=== PATIENT | female | born 1970 | race Two or more races ===

== ENCOUNTER 2017-04-25 11:01 | Emergency (ER) | payer MEDICARE, MEDICAID ==
[~2017-04-25] VITALS: Ht 149.9 cm; Wt 123.4 kg
[2017-04-25] MEDS ORDERED: ONDANSETRON HCL/PF 4 MG/2 ML VIAL ONE (11:36)
[2017-04-25] MEDS ORDERED: MORPHINE SULFATE INJ 4 MG/ML DISP.SYRIN ONE (11:37)
--- NOTE | 2017-04-25 11:40 | NUR ---
PT SENT BY DR. DUNBAR FOR ABD PAIN WITH N/V. PT DENIES FEVER. VSS. SEEN BY MD FOR EVAL. SAFETY AND COMFORT MEASURES PROVIDED. WILL MONITOR.
[2017-04-25 11:45] LABS: BASOPHILS % (AUTO) 0.4 % (0.0-2.0); EOSINOPHILS # (AUTO) 0.2 /CMM (0.0-0.7); EOSINOPHILS % (AUTO) 3.4 % (0.0-6.0); HEMATOCRIT 39 % (33-45); HEMOGLOBIN 12.8 g/dL (11.5-14.8); LYMPHOCYTES # (AUTO) 1.3 /CMM (0.8-4.8); LYMPHOCYTES % (AUTO) 18.7 % (20.0-44.0); MEAN CORPUSCULAR HEMOGLOBIN 28 PG (26.0-33.0); MEAN CORPUSCULAR HGB CONC 33 g/dl (31.0-36.0); MEAN CORPUSCULAR VOLUME 85 fL (82-100); MONOCYTES # (AUTO) 0.4 /CMM (0.1-1.30); MONOCYTES % (AUTO) 5.6 % (2.0-12.0); NEUTROPHILS # (AUTO) 4.9 /CMM (1.8-8.9); NEUTROPHILS % (AUTO) 71.9 % (43.0-81.0); PLATELET COUNT (AUTO) 234 /CMM (150-450); RED BLOOD CELL COUNT(AUTO) 4.62 MIL/uL (4.0-5.2); WHITE BLOOD COUNT (AUTO) 6.9 K/uL (4.3-11.0)
--- NOTE | 2017-04-25 11:52 | NUR ---
IV ACCESS STARTED. BLOOD DRAWN FOR LABS. PT MEDICATED ORDERED. UNABLE TO PROVIDED URINE SAMPLE AT THIS TIME.
[2017-04-25 11:58] LABS: ABG BASE EXCESS -1.9 mmol/L; ABG OXYGEN SATURATION 91.5 % (92.0-98.5); ABG PCO2 38.8 mmHg (35.0-45.0); ABG PH 7.387 (7.350-7.450); ABG PO2 65.9 mmHg (75.0-100.0); COHb 0.8 % (0.5-1.5); MetHb 0.4 % (0.0-1.5); O2Hb 90.4 % (94.0-97.0); VENT MODE, BG ROOM AIR
[2017-04-25] MEDS ORDERED: ONDANSETRON HCL/PF 4 MG/2 ML VIAL IVP ONE (12:00)
[2017-04-25] MEDS ORDERED: IV NS 0.9% 1,000 ML BAG IV ONE (12:00)
[2017-04-25] MEDS ORDERED: MORPHINE SULFATE INJ 2 MG/ML DISP.SYRIN IV ONE (12:00)
[2017-04-25 12:12] LABS: CALCIUM, SERUM 8.1 mg/dL (8.5-10.1); CREATININE 0.4 mg/dL (0.6-1.3)
[2017-04-25] MEDS ORDERED: HYDROMORPHONE 1 MG/1 ML DISP.SYRIN ONE (12:14)
[2017-04-25 12:18] LABS: ALBUMIN 3.2 g/dL (3.4-5.0); BILIRUBIN,DIRECT 0.1 mg/dL (0.0-0.2); BILIRUBIN,TOTAL 0.4 mg/dL (0.2-1.0)
--- NOTE | 2017-04-25 12:18 | NUR ---
CALLED PT'S SON DEBBIE AT PER PT'S REQUEST.
--- NOTE | 2017-04-25 12:19 | NUR ---
PT C/O OF PAIN, MD AWARE. NEW ORDERS CARRIED OUT.
[2017-04-25] MEDS ORDERED: HYDROMORPHONE 1 MG/1 ML DISP.SYRIN IV ONE (12:30)
--- NOTE | 2017-04-25 12:36 | NUR ---
URINE SAMPLE OBTAINED, SENT.
[2017-04-25 13:02] LABS: APPEARANCE,URINE CLEAR (CLEAR); BILIRUBIN,URINE NEGATIVE (NEGATIVE); BLOOD, URINE 1+ Ery/uL (NEGATIVE); COLOR,URINE YELLOW (YELLOW); KETONES,URINE NEGATIVE (NEGATIVE); LEUKOCYTE ESTERASE ,URINE TRACE (NEGATIVE); NITRITE, URINE NEGATIVE (NEGATIVE); PROTEIN,URINE NEGATIVE (NEGATIVE); UGLUCOSE 3+ mg/dL (NEGATIVE); UROBILINOGEN,URINE 0.2 EU/dL (0.2)
--- NOTE | 2017-04-25 13:02 | NUR ---
PT TAKEN TO CT.
[2017-04-25 13:06] LABS: BACTERIA,URINE Rare /HPF (None Seen); SQUAMOUS EPITHELIAL CELL,UR Few /HPF (None Seen); WBC,URINE 0-2 /HPF (0-3)
--- NOTE | 2017-04-25 13:08 | NUR ---
PT BACK IN BED FROM CT.
--- NOTE | 2017-04-25 13:31 | NUR ---
DR DUNBAR ON THE PHONE WITH DR PRICE.
--- NOTE | 2017-04-25 13:45 | NUR ---
IV removed. Catheter intact and site benign. Pressure and 4x4 applied to site. No bleeding noted.
--- NOTE | 2017-04-25 13:51 | NUR ---
Patient discharged to home in stable condition. Written and verbal after care instructions given. Patient verbalizes understanding of instruction.
[2017-04-25 13:52] VITALS: BP 117/72
== END 2017-04-25 13:53 | disposition home or self-care (01) ==
LOC: ER 11:21
DX: R10.84 Generalized abdominal pain (principal); E66.01 Morbid (severe) obesity due to excess calories; E11.65 Type 2 diabetes mellitus with hyperglycemia; F31.9 Bipolar disorder, unspecified; Z90.49 Acquired absence of other specified parts of digestive tract; Z90.710 Acquired absence of both cervix and uterus; Z88.8 Allergy status to other drugs, medicaments and biological substances
CPT/HCPCS: 36415; 36600; 71250; 74176; 80048; 80076; 81001; 83690; 84703; 85025; 96361; 96374; 96375; 99285; A4606; J1170; J2270; J2405; J7030 ×2; 81000-TC; Z7610

== ENCOUNTER 2017-06-15 10:55 | Emergency (ER) | payer MEDICARE, MEDICAID ==
[~2017-06-15] VITALS: Ht 149.9 cm; Wt 92.1 kg
--- NOTE | 2017-06-15 10:55 | NUR ---
SENT BY DR DUNBAR FOR ABSCESS TO L [facility] X 1 WEEK, BURNING SENSATION
[2017-06-15] MEDS ORDERED: LIDOCAINE HCL/PF 1% 30 ML SDV ONE (11:43)
[2017-06-15] MEDS ORDERED: LIDOCAINE 2%-EPI 1:100,000 30 ML VIAL TP ONE (12:00)
[2017-06-15] MEDS ORDERED: HYDROMORPHONE 1 MG/1 ML DISP.SYRIN IM ONE (12:30)
--- NOTE | 2017-06-15 12:48 | NUR ---
Patient discharged to home in stable condition. Written and verbal after care instructions given. Patient verbalizes understanding of instruction.
[2017-06-15 12:51] VITALS: BP 125/80
[2017-06-20] MEDS ORDERED: SULF1TAB48 PO (09:30)
== END 2017-06-15 12:52 | disposition home or self-care (01) ==
LOC: ER 10:58
DX: N76.2 Acute vulvitis (principal); E11.9 Type 2 diabetes mellitus without complications; F31.9 Bipolar disorder, unspecified; Z88.8 Allergy status to other drugs, medicaments and biological substances; Z90.49 Acquired absence of other specified parts of digestive tract; Z90.710 Acquired absence of both cervix and uterus
CPT/HCPCS: 56405; 96372; 99284; A4606; A6402 ×2; A6407; J1170; J3490; Z7610

== ENCOUNTER 2017-06-17 12:37 | Inpatient (IN) | payer MEDICARE, MEDICAID ==
[~2017-06-17] VITALS: Ht 149.9 cm; Wt 96.2 kg
--- NOTE | 2017-06-17 13:44 | NUR ---
VERBAL ORDER FROM HARMONY SAWANT LIDOCAINE 2% 20 ML AND XYLOCAINE 0.5 % WITH EPINEPHRINE [id number] INSTEAD OF 2% WITH EPI NO STOCK
[2017-06-17 13:56] LABS: BASOPHILS % (AUTO) 0.5 % (0.0-2.0); EOSINOPHILS # (AUTO) 0.2 /CMM (0.0-0.7); EOSINOPHILS % (AUTO) 3.4 % (0.0-6.0); HEMATOCRIT 38 % (33-45); HEMOGLOBIN 12.6 g/dL (11.5-14.8); LYMPHOCYTES # (AUTO) 1.6 /CMM (0.8-4.8); LYMPHOCYTES % (AUTO) 23.5 % (20.0-44.0); MEAN CORPUSCULAR HEMOGLOBIN 28 PG (26.0-33.0); MEAN CORPUSCULAR HGB CONC 33 g/dl (31.0-36.0); MEAN CORPUSCULAR VOLUME 83 fL (82-100); MONOCYTES # (AUTO) 0.5 /CMM (0.1-1.30); MONOCYTES % (AUTO) 6.8 % (2.0-12.0); NEUTROPHILS # (AUTO) 4.5 /CMM (1.8-8.9); NEUTROPHILS % (AUTO) 65.8 % (43.0-81.0); PLATELET COUNT (AUTO) 240 /CMM (150-450); RDW COEFFICIENT OF VARIATION 13.9 (11.5-15.0); RED BLOOD CELL COUNT(AUTO) 4.55 MIL/uL (4.0-5.2); WHITE BLOOD COUNT (AUTO) 6.9 K/uL (4.3-11.0)
[2017-06-17] MEDS ORDERED: TRAZ-147 PO (14:10)
[2017-06-17] MEDS ORDERED: LOSA25TA13 PO (14:10)
[2017-06-17] MEDS ORDERED: GEMF600T3 PO (14:10)
[2017-06-17] MEDS ORDERED: INSU100V11 SQ (14:10)
[2017-06-17] MEDS ORDERED: SERT100T PO (14:10)
[2017-06-17] MEDS ORDERED: ASPI-991 PO (14:10)
[2017-06-17] MEDS ORDERED: DICY10CA59 PO (14:10)
[2017-06-17] MEDS ORDERED: SITA1TAB6 PO (14:10)
[2017-06-17] MEDS ORDERED: INSU100I19 SQ (14:10)
[2017-06-17] MEDS ORDERED: ARIP15TA8 PO (14:10)
[2017-06-17 14:27] LABS: CALCIUM, SERUM 8.9 mg/dL (8.5-10.1); CREATININE 0.6 mg/dL (0.6-1.3); POTASSIUM 4.2 mmol/L (3.5-5.1)
[2017-06-17 14:32] LABS: ALBUMIN 3.5 g/dL (3.4-5.0); BILIRUBIN,DIRECT 0.1 mg/dL (0.0-0.2); BILIRUBIN,TOTAL 0.5 mg/dL (0.2-1.0); TOTAL PROTEIN, SERUM 7.2 g/dL (6.4-8.2)
--- NOTE | 2017-06-17 14:56 | NUR ---
GAVE REPORT TO [facility]NG [facility] ROOM 202 DR FERNANDO ADMITTING
--- NOTE | 2017-06-17 15:55 | NUR ---
RN Initial Notes: Received patient from ER per Dr. Guzman's orders. Patient alert orientedx4. Non-labored breathing noted on room air. Patient accompanied by son. Vital signs: blood pressure: 106/70, HR 86, SpO2 97%, RR 18, Temp 98.4F. No signs of distress noted. Received report from Mina who informed me that Clindamycin was administered in the ER. IV on right AC, gauge 20, patent and intact. Will continue to monitor patient and follow orders
--- NOTE | 2017-06-17 18:45 | NUR ---
RN Closing Notes: Patient resting in bed. Patient alert orientedx4. Non-labored breathing noted on room air. Blood sugar checked before dinner 224. Pharmacy contacted to have insulin delivered. Awaiting on insulin delivery. IV on right AC, gauge 20, patent and intact. Clindamycin scheduled at 1500 administered by Mina in ER. Patient afebrile. No bleeding noted on pad from past abscess site. Will endorse to next shift.
--- NOTE | 2017-06-17 19:50 | NUR ---
RN NOTES: RECEIVED REPORT FROM DEREK VIDAL PT IN BED AWAKE, A/O X3 ON RA RESPIRATION EVEN AND UNLABORED, DENIES ANY PAIN OR DISCOMFORT ATT HIS TIME, RIGHT AC IV ACCESS PATENT AND FLUSHING WELL, INFUSING WITH VANCOMYCIN ATB AT 250ML/HR. S/P I&D OF LEFT VULVAR WOUND IN ER 06/17/17, DRESSING IN PLACED, NOTED WITH SOME DRY BLOOD, SAFETY PRECAUTION FOR FALL INITIATED CALL LIGHT IN REACH, WILL CONTINUE TO MONITOR FOR ANY CHANGES.
[2017-06-17 20:00] VITALS: BP_SYST 109; BP_DIAS 64; BP_DIAS 68
--- NOTE | 2017-06-17 20:31 | NUR ---
LATE ADMINISTRATION OF LEVEMIR: DAY RN YOUNG WASN'T ABLE TO GIVE THE LEVEMIR AT SCHEDULED TIME (1700) SHE STATED MEDICATION NOT AVAILABLE, BUT WHEN I CHECKED THE CASETTE DURING CHANGE OF SHIFT, LEVEMIR IS IN THERE. BS CHECK AND REVEAL 338, 40 UNITS OF LEVEMIR ADMINISTERED AT THIS TIME, PT ON CCHO DIET.
[2017-06-17 22:30] VITALS: BP 109/64
--- NOTE | 2017-06-17 22:38 | NUR ---
accu check: blood sugar taken and reveal 329, 8units of insulin given per sliding scale, pt on ccho diet, tolerating po intake well, also losartan not administered due to bp 109/64 hr 75, risk of hypotension of given the pill, will continue to monitor and reassess
--- NOTE | 2017-06-18 06:31 | NUR ---
ACCU CHECK: CHECK BLOOD SUGAR AND REVEAL 225, 6UNITS OF INSULIN GIVEN PER SLIDING SCALE, WILL MONITOR PT FOR ANY S/S OF HYPOGLYCEMIA
[2017-06-18 06:36] LABS: CALCIUM, SERUM 8.5 mg/dL (8.5-10.1); CREATININE 0.6 mg/dL (0.6-1.3); POTASSIUM 4.4 mmol/L (3.5-5.1)
--- NOTE | 2017-06-18 07:11 | NUR ---
RN CLOSING NOTES: PT IN BED, AWAKE, ON RA, DENIES ANY PAIN OR DISCOMFORT THROUGHOUT THE SHIFT. PACKING ON LEFT VALVULAR AREA REMAISN IN PLACED, NO ACTIVE BLEEDING NOTED. RIGHT AC IV ACCESS REMAINS PATENT AND FLUSHING WELL, ON HL. VS REMAINS STABLE, NEEDS ATTENDED. SAFETY PRECAUTIONS FOR FALL REMAINS ENGAGED, CALL LIGHT IN REACH, WILL ENDORSE TO DAY RN FOR CARO.
--- NOTE | 2017-06-18 07:35 | NUR ---
RN OPENING NOTES RECEIVED PATIENT AWAKE RESTING COMFORTABLY IN BED. A/Ox3. COMPLAINING OF PAIN 8/10 AT THE ABSCESS SITE. WILL IMPLEMENT APPROPRIATE INTERVENTIONS. DENIES SOB. DENIES CHEST PAIN. RESPIRATIONS EVEN AND UNLABORED. NO ACUTE DISTRESS NOTED. BED LOCKED IN THE LOWEST POSITION WITH SIDE RAILS X2. WILL CONTINUE TO MONITOR, ASSESS AND EDUCATE PATIENT THROUGHOUT SHIFT.
[2017-06-18 08:00] VITALS: BP 111/72
--- NOTE | 2017-06-18 10:43 | NUR ---
WOUND CARE CONSULT: PT PRESENTS WITH ABSCESS SITE S/P I&D TO LEFT VULVA AREA. RECOMMEND SURGICAL CONSULT. WILL SEE PRN. ARZOLA IN AGREEMENT WITH PLAN OF CARE. Addendum: 06/18/17 at 1044 by GINGER FENTON WNDNU Amended: Links added.
--- NOTE | 2017-06-18 11:06 | NUR ---
RN NOTES PATIENT SEEN BY WOUND RN AND PACKING REMOVED.
[2017-06-18 16:00] VITALS: BP 120/84
--- NOTE | 2017-06-18 19:40 | NUR ---
MS RN NOTE RECEIVED PATIENT FROM DAY SHIFT, PATIENT IS ALERT AND ORIENTEDX3, AMBULATORY, NO S/S OF RESPIRATORY DISTRESS OR PAIN AT THIS TIME. IV ON RIGHT AC IS PATENT AND INTACT, HL ONLY. SRX2, BED IN LOW POSITION, CALL LIGHT WITHIN REACH, WILL CONTINUE TO MONITOR PATIENT.
[2017-06-18 19:57] VITALS: BP 103/66
--- NOTE | 2017-06-18 20:16 | NUR ---
RN CLOSING NOTES RECEIVED PATIENT RESTING COMFORTABLY IN BED. A/Ox3. DENIES PAIN. DENIES SOB. DENIES CHEST PAIN. RESPIRATIONS EVEN AND UNLABORED. NO ACUTE DISTRESS NOTED. BLOOD SUGAR CONTROLLED. ALL NEEDS MET. ALL MEDS GIVEN APPROPRIATE. BED LOCKED IN THE LOWEST POSITION WITH SIDE RAILS X2. WILL ENDORSE TO NIGHT RN FOR CARO.
[2017-06-19 06:41] LABS: CALCIUM, SERUM 8.4 mg/dL (8.5-10.1); CREATININE 0.5 mg/dL (0.6-1.3); POTASSIUM 4.1 mmol/L (3.5-5.1)
--- NOTE | 2017-06-19 07:18 | NUR ---
MS RN NOTE PATIENT IS RESTING IN CHAIR COMFORTABLY, DENIES RESPIRATORY DISTRESS OR PAIN AT THIS TIME. IV ON RIGHT FA IS PATENT AND INTACT, RUNNING ABX. WILL ENDORSE TO DAY SHIFT NURSE FOR CARO.
[2017-06-19 08:00] VITALS: BP 114/73
[2017-06-19 16:00] VITALS: BP 117/73
--- NOTE | 2017-06-19 18:55 | NUR ---
MS RN Closing Notes: Received patient in bed. Patient alert oriented x3. Non-labored breathing noted on room air. Patient denies pain at the moment. IV site on right ac patent and intact. Bed in lowest locked position. Call light within reach. During shift, patient kept clean and dry. Wound assessed and cleaned. No signs of infection. Patient helped to turn and reposition every 2 hours. Will endorse to next shift
--- NOTE | 2017-06-19 19:40 | NUR ---
MS RN NOTE RECEIVED PATIENT FROM DAY SHIFT, PATIENT IS ALERT AND ORIENTEDX3, NO S/S OF RESPIRATORY DISTRESS OR PAIN AT THIS TIME. IV ON RIGHT AC IS PATENT AND INTACT, ABX IS RUNNING. SRX2, BED IN LOW POSITION, CALL LIGHT WITHIN REACH, WILL CONTINUE TO MONITOR PATIENT.
[2017-06-19 20:00] VITALS: BP 122/69
[2017-06-20 06:51] LABS: CALCIUM, SERUM 8.4 mg/dL (8.5-10.1); CREATININE 0.7 mg/dL (0.6-1.3); POTASSIUM 4.2 mmol/L (3.5-5.1)
--- NOTE | 2017-06-20 06:52 | NUR ---
MS RN NOTE NO ACUTE EVENT NOTED THROUGHOUT THE FILLING LAYER UP. NO S/S OF RESPIRATORY DISTRESS OR PAIN AT THIS TIME. IV ON RIGHT AC IS PATENT AND INTACT, ABX IS RUNNING. WILL ENDORSE TO DAY SHIFT NURSE FOR CARO.
--- NOTE | 2017-06-20 08:03 | NUR ---
MS RN Closing Notes: Received patient in bed. Patient alert oriented x3. Non-labored breathing noted on room air. Patient denies pain at the moment. IV site on right ac patent and intact. Bed in lowest locked position. Call light within reach. Will continue to monitor.
[2017-06-20 08:08] VITALS: BP 107/70
[2017-06-20] MEDS ORDERED: SULF1TAB48 PO (09:30)
[2017-06-20 16:19] VITALS: BP 114/71
--- NOTE | 2017-06-20 16:20 | NUR ---
RN Closing Notes: Patient discharged home per MD orders. Patient stable. Vital signs within normal range. Non-labored breathing noted on room air. Patient denies pain at the moment. Patient educated [facility] regarding medications, disease process, and treatment. Patient states having the flu vaccine a month ago. Wound picture in chart. IV peripheral taken out. Patient has an appointment with primary home health aide caregiver tomorrow. Patient educated on wound care instructions provided by Swetha EAGLE. Patient educated to make an appointment with wound center. Belongings given to patient. Patient left with son via private car.
== END 2017-06-20 16:30 | disposition home or self-care (01) | DRG 746 ==
LOC: ER 12:39 → MEDSG2 16:29
PROVIDERS: ADMIT Internal Medicine; ATTEND Internal Medicine
PROC: 0U9MXZZ Drainage of Vulva, External Approach (ICD-10-PCS; principal; 2017-06-17)
DX: N76.4 Abscess of vulva (principal); E43 Unspecified severe protein-calorie malnutrition; Z68.41 Body mass index [BMI] 40.0-44.9, adult; E11.9 Type 2 diabetes mellitus without complications; E78.5 Hyperlipidemia, unspecified; E66.01 Morbid (severe) obesity due to excess calories; E88.09 Other disorders of plasma-protein metabolism, not elsewhere classified; I10 Essential (primary) hypertension; F31.9 Bipolar disorder, unspecified; Z79.4 Long term (current) use of insulin
CPT/HCPCS: 36415; 80048-TC; 80076-TC; 80202-TC; 82962-TC; 83605-TC; 85025-TC; 87040-TC; 87081-TC; A4606; A6403; A6407; J1170; J1650; J1815; J2405; J3370; J3490; J7030; J7060; Z7610

== ENCOUNTER 2017-06-25 14:00 | Outpatient (CLI) | payer MEDICARE, MEDICAID ==
[~2017-06-25 14:00] MED LIST: ARIP15TA8 PO; ASPI-991 PO; DICY10CA59 PO; GEMF600T3 PO; INSU100I19 SQ; INSU100V11 SQ; LOSA25TA13 PO; SERT100T PO; SITA1TAB6 PO; SULF1TAB48 PO; TRAZ-147 PO
== END 2017-06-25 23:59 | disposition home or self-care (01) ==
LOC: WOU 14:00
PROVIDERS: ATTEND Surgery
DX: Z48.817 Encounter for surgical aftercare following surgery on the skin and subcutaneous tissue (principal); N76.2 Acute vulvitis; E11.9 Type 2 diabetes mellitus without complications; Z79.4 Long term (current) use of insulin; E66.01 Morbid (severe) obesity due to excess calories; Z68.41 Body mass index [BMI] 40.0-44.9, adult; Z71.3 Dietary counseling and surveillance
CPT/HCPCS: G0463

== ENCOUNTER 2017-07-02 06:17 | Emergency (ER) | payer MEDICARE, MEDICAID ==
[~2017-07-02] VITALS: Ht 149.9 cm; Wt 92.1 kg
--- NOTE | 2017-07-02 06:25 | NUR ---
To bed 7 a 47yo female patient bb self w c/o umbilcal henia pain x 1 day. Patient is aaox4, nad noted, vss, nondiaphoretic. gowned. comfort measures rendered. awaiting for er md centeno.
--- NOTE | 2017-07-02 06:41 | NUR ---
Dr Blackmon at bedside to eval.
--- NOTE | 2017-07-02 07:07 | NUR ---
applied psychology chair at bedside to draw blood.
[2017-07-02 07:19] LABS: BASOPHILS % (AUTO) 0.4 % (0.0-2.0); EOSINOPHILS # (AUTO) 0.1 /CMM (0.0-0.7); EOSINOPHILS % (AUTO) 1.8 % (0.0-6.0); HEMATOCRIT 37 % (33-45); HEMOGLOBIN 12.1 g/dL (11.5-14.8); LYMPHOCYTES # (AUTO) 1.3 /CMM (0.8-4.8); LYMPHOCYTES % (AUTO) 15.5 % (20.0-44.0); MEAN CORPUSCULAR HEMOGLOBIN 28 PG (26.0-33.0); MEAN CORPUSCULAR HGB CONC 33 g/dl (31.0-36.0); MEAN CORPUSCULAR VOLUME 84 fL (82-100); MONOCYTES # (AUTO) 0.4 /CMM (0.1-1.30); NEUTROPHILS # (AUTO) 6.5 /CMM (1.8-8.9); NEUTROPHILS % (AUTO) 77.3 % (43.0-81.0); PLATELET COUNT (AUTO) 233 /CMM (150-450); RDW COEFFICIENT OF VARIATION 13.5 (11.5-15.0); RED BLOOD CELL COUNT(AUTO) 4.35 MIL/uL (4.0-5.2); WHITE BLOOD COUNT (AUTO) 8.4 K/uL (4.3-11.0)
[2017-07-02 07:25] LABS: APPEARANCE,URINE SL CLOUDY (CLEAR); BILIRUBIN,URINE NEGATIVE (NEGATIVE); BLOOD, URINE TRACE-INTA Ery/uL (NEGATIVE); COLOR,URINE YELLOW (YELLOW); KETONES,URINE NEGATIVE (NEGATIVE); LEUKOCYTE ESTERASE ,URINE NEGATIVE (NEGATIVE); NITRITE, URINE NEGATIVE (NEGATIVE); PROTEIN,URINE NEGATIVE (NEGATIVE); UGLUCOSE 3+ mg/dL (NEGATIVE); UROBILINOGEN,URINE 0.2 EU/dL (0.2)
[2017-07-02 07:37] LABS: ALBUMIN 3.3 g/dL (3.4-5.0); BILIRUBIN,DIRECT 0.1 mg/dL (0.0-0.2); BILIRUBIN,TOTAL 0.5 mg/dL (0.2-1.0); CALCIUM, SERUM 8.4 mg/dL (8.5-10.1); CREATININE 0.7 mg/dL (0.6-1.3); POTASSIUM 4.3 mmol/L (3.5-5.1); TOTAL PROTEIN, SERUM 6.6 g/dL (6.4-8.2)
[2017-07-02 07:50] LABS: RBC,URINE 0-2 /HPF (0-2); WBC,URINE NONE SEEN /HPF (0-3)
[2017-07-02 07:51] LABS: BACTERIA,URINE Few /HPF (None Seen); SQUAMOUS EPITHELIAL CELL,UR Moderate /HPF (None Seen); YEAST,URINE Few /HPF (None Seen)
[2017-07-02] MEDS ORDERED: INSULIN DETEMIR 100 UNIT/ML CARTRIDGE SQ SCH (08:00)
--- NOTE | 2017-07-02 08:08 | NUR ---
Patient discharged to home in stable condition. Written and verbal after care instructions given. Patient verbalizes understanding of instruction.
[2017-07-02 08:09] VITALS: BP 133/85
== END 2017-07-02 08:10 | disposition home or self-care (01) ==
LOC: ER 06:17
DX: R10.11 Right upper quadrant pain (principal); E11.65 Type 2 diabetes mellitus with hyperglycemia; N20.0 Calculus of kidney; E66.01 Morbid (severe) obesity due to excess calories; F31.9 Bipolar disorder, unspecified; Z90.49 Acquired absence of other specified parts of digestive tract; Z90.710 Acquired absence of both cervix and uterus; Z88.8 Allergy status to other drugs, medicaments and biological substances; Z79.82 Long term (current) use of aspirin; Z79.4 Long term (current) use of insulin
CPT/HCPCS: 36415; 74020; 80048; 80076; 81001; 83690; 85025; 96372; 99285; A4606; J1815; 81000-TC; Z7610

== ENCOUNTER 2017-09-21 10:47 | Emergency (ER) | payer MEDICARE, MEDICAID ==
[~2017-09-21] VITALS: Ht 154.9 cm; Wt 88.9 kg
[~2017-09-21 10:47] MED LIST changes: +ASPI-1152 PO; -ASPI-991 PO
[2017-09-21] MEDS ORDERED: INSULIN ASPART HUMALOG/NOVOLOG 100 UNIT/ML CARTRIDGE SQ STA (11:25)
[2017-09-21] MEDS ORDERED: IV NS 0.9% 1,000 ML BAG IV ONE (11:30)
--- NOTE | 2017-09-21 11:30 | NUR ---
47-year-old female patient sent by her primary care physician for treatment and evaluation of hyperglycemia
--- NOTE | 2017-09-21 11:35 | NUR ---
Seen by the ER physician; intravenous line started - IVF 1 L and his bolus given
[2017-09-21] MEDS ORDERED: INSULIN REGULAR, HUMAN 100 UNIT/ML 10 ML VIAL ONE (11:38)
--- NOTE | 2017-09-21 11:47 | NUR ---
Regular insulin IV push 10 units given witnessed by Hal REED registered nurse
--- NOTE | 2017-09-21 11:49 | NUR ---
No acute distress; labs drawn and sent to the laboratory
[2017-09-21 11:56] LABS: CALCIUM, SERUM 8.9 mg/dL (8.5-10.1); CREATININE 0.5 mg/dL (0.6-1.3); POTASSIUM 4.1 mmol/L (3.5-5.1)
--- NOTE | 2017-09-21 13:02 | NUR ---
BLOOD SUGAR RECHECK 252.
--- NOTE | 2017-09-21 19:01 | NUR ---
IV removed. Catheter intact and site benign. Pressure and 4x4 applied to site. No bleeding noted.
--- NOTE | 2017-09-21 19:01 | NUR ---
Patient discharged to home in stable condition. Written and verbal after care instructions given. Patient verbalizes understanding of instruction. ambulatory with a steady gait.
[2017-09-21 19:03] VITALS: BP 132/70
== END 2017-09-21 19:04 | disposition home or self-care (01) ==
LOC: ER 10:55
DX: E11.65 Type 2 diabetes mellitus with hyperglycemia (principal); Z91.14 Patient's other noncompliance with medication regimen; F31.9 Bipolar disorder, unspecified; Z79.4 Long term (current) use of insulin; Z90.49 Acquired absence of other specified parts of digestive tract; Z90.710 Acquired absence of both cervix and uterus; Z88.8 Allergy status to other drugs, medicaments and biological substances; Z79.82 Long term (current) use of aspirin
CPT/HCPCS: 36415; 80048; 82962 ×2; 96374; 99284; A4606; J1815 ×2; J7030; Z7610

== ENCOUNTER 2017-10-10 15:42 | Emergency (ER) | payer MEDICARE, MEDICAID ==
[~2017-10-10] VITALS: Ht 154.9 cm; Wt 89.8 kg
[2017-10-10] MEDS ORDERED: IV NS 0.9% 500 ML BAG IV ONE (16:00)
[2017-10-10 16:10] LABS: BASOPHILS # (AUTO) 0.1 /CMM (0.0-0.2); BASOPHILS % (AUTO) 1.6 % (0.0-2.0); EOSINOPHILS # (AUTO) 0.2 /CMM (0.0-0.7); EOSINOPHILS % (AUTO) 2.1 % (0.0-6.0); HEMATOCRIT 39 % (33-45); HEMOGLOBIN 13.6 g/dL (11.5-14.8); LYMPHOCYTES # (AUTO) 1.6 /CMM (0.8-4.8); LYMPHOCYTES % (AUTO) 21.3 % (20.0-44.0); MEAN CORPUSCULAR HEMOGLOBIN 29 PG (26.0-33.0); MEAN CORPUSCULAR HGB CONC 35 g/dl (31.0-36.0); MEAN CORPUSCULAR VOLUME 82 fL (82-100); MONOCYTES # (AUTO) 0.3 /CMM (0.1-1.30); MONOCYTES % (AUTO) 4.3 % (2.0-12.0); NEUTROPHILS # (AUTO) 5.3 /CMM (1.8-8.9); NEUTROPHILS % (AUTO) 70.7 % (43.0-81.0); PLATELET COUNT (AUTO) 262 /CMM (150-450); RDW COEFFICIENT OF VARIATION 12.8 (11.5-15.0); RED BLOOD CELL COUNT(AUTO) 4.74 MIL/uL (4.0-5.2); WHITE BLOOD COUNT (AUTO) 7.5 K/uL (4.3-11.0)
[2017-10-10 16:23] LABS: INR 0.88 (0.85-1.15)
[2017-10-10 16:25] LABS: ALBUMIN 3.7 g/dL (3.4-5.0); BILIRUBIN,DIRECT 0.1 mg/dL (0.0-0.2); BILIRUBIN,TOTAL 0.3 mg/dL (0.2-1.0); CALCIUM, SERUM 8.9 mg/dL (8.5-10.1); CREATININE 0.7 mg/dL (0.6-1.3); POTASSIUM 4.2 mmol/L (3.5-5.1); TOTAL PROTEIN, SERUM 7.3 g/dL (6.4-8.2)
[2017-10-10] MEDS ORDERED: INSULIN REGULAR, HUMAN 100 UNIT/ML 10 ML VIAL ONE (17:15)
[2017-10-10] MEDS ORDERED: INSULIN REGULAR, HUMAN 100 UNIT/ML 10 ML VIAL SQ ONE (17:30)
[2017-10-10 17:45] VITALS: BP 126/74
== END 2017-10-10 17:45 | disposition home or self-care (01) ==
LOC: ER 15:43
DX: E11.65 Type 2 diabetes mellitus with hyperglycemia (principal); F31.9 Bipolar disorder, unspecified; Z90.49 Acquired absence of other specified parts of digestive tract; Z90.710 Acquired absence of both cervix and uterus; Z88.8 Allergy status to other drugs, medicaments and biological substances; Z79.82 Long term (current) use of aspirin; Z79.4 Long term (current) use of insulin
CPT/HCPCS: 36415; 80048-TC; 80076-TC; 82010-TC; 85025-TC; 85730-TC; A4606; J1815; J7040; Z7610

== ENCOUNTER 2017-11-28 11:39 | Emergency (ER) | payer MEDICARE, MEDICAID ==
[~2017-11-28] VITALS: Ht 154.9 cm; Wt 97.1 kg
[2017-11-28 11:40] VITALS: BP 144/85
== END 2017-11-28 12:37 | disposition home or self-care (01) ==
LOC: ER 11:41
DX: L08.9 Local infection of the skin and subcutaneous tissue, unspecified (principal); E11.9 Type 2 diabetes mellitus without complications; F31.9 Bipolar disorder, unspecified; Z88.8 Allergy status to other drugs, medicaments and biological substances; Z90.710 Acquired absence of both cervix and uterus; Z90.49 Acquired absence of other specified parts of digestive tract; Z79.82 Long term (current) use of aspirin; Z79.4 Long term (current) use of insulin
CPT/HCPCS: A4606; Z7610

== ENCOUNTER 2018-04-07 23:21 | Emergency (ER) | payer MEDICARE, MEDICAID ==
[~2018-04-07] VITALS: Ht 154.9 cm; Wt 98.4 kg
[~2018-04-07 23:21] MED LIST changes: -TRAZ-147 PO; +TRAZ-214 PO
--- NOTE | 2018-04-07 23:39 | NUR ---
MD BEDSIDE WITH PT
--- NOTE | 2018-04-07 23:45 | NUR ---
PT BBSELF FROM HOME C/C OF SWELLING/REDNESS/ABSCESS ON THE LEFT LATERAL NECK. PT IS AAOX4. AFEBRILE. DENIES ANY DIFFICULTY SWALLOWING. SKIN WNL. NO S/S OF ACUTE DISTRESS NOTED. OT STATES LEFT NECK PAIN 10/10 NON RADIATING AND CONSTANT. RESP EVEN AND UNLABORED. PT PLACED ON BANK RUNNER AND POX. PT SAFETY AND COMFORT MEASURES IN PLACE. AWAITING MD FOR EVAL.
[2018-04-07 23:56] LABS: BASOPHILS # (AUTO) 0.1 /CMM (0.0-0.2); BASOPHILS % (AUTO) 0.7 % (0.0-2.0); HEMATOCRIT 38 % (33-45); HEMOGLOBIN 12.8 g/dL (11.5-14.8); LYMPHOCYTES # (AUTO) 1.6 /CMM (0.8-4.8); LYMPHOCYTES % (AUTO) 19.5 % (20.0-44.0); MEAN CORPUSCULAR HEMOGLOBIN 29 PG (26.0-33.0); MEAN CORPUSCULAR HGB CONC 34 g/dl (31.0-36.0); MEAN CORPUSCULAR VOLUME 85 fL (82-100); MONOCYTES # (AUTO) 0.5 /CMM (0.1-1.30); MONOCYTES % (AUTO) 5.6 % (2.0-12.0); NEUTROPHILS # (AUTO) 5.8 /CMM (1.8-8.9); NEUTROPHILS % (AUTO) 70.2 % (43.0-81.0); PLATELET COUNT (AUTO) 266 /CMM (150-450); RDW COEFFICIENT OF VARIATION 13.7 (11.5-15.0); RED BLOOD CELL COUNT(AUTO) 4.47 MIL/uL (4.0-5.2); WHITE BLOOD COUNT (AUTO) 8.3 K/uL (4.3-11.0)
[2018-04-08] MEDS ORDERED: MORPHINE SULFATE INJ 2 MG/ML DISP.SYRIN IV ONE
[2018-04-08] MEDS ORDERED: ONDANSETRON HCL/PF 4 MG/2 ML VIAL IVP ONE
[2018-04-08] MEDS ORDERED: IV NS 0.9% 500 ML BAG IV ONE
[2018-04-08] MEDS ORDERED: ONDANSETRON HCL/PF 4 MG/2 ML VIAL ONE (00:01)
[2018-04-08] MEDS ORDERED: MORPHINE SULFATE INJ 4 MG/ML DISP.SYRIN ONE (00:02)
--- NOTE | 2018-04-08 00:11 | NUR ---
PT REFUSED MORPHINE AND ZOFRAN. MEDS RETURNED WITH RN MOLLY Saucedo MD MADE AWARE
[2018-04-08 00:35] LABS: CALCIUM, SERUM 9.1 mg/dL (8.5-10.1); CREATININE 0.9 mg/dL (0.6-1.3); POTASSIUM 4.4 mmol/L (3.5-5.1)
[2018-04-08] MEDS ORDERED: IOHEXOL-300 100 ML VIAL IV ONE (00:55)
[2018-04-08] MEDS ORDERED: CT SWABBABLE VALVE TRANS SET 1 EA INFUS.SET MC ONE (00:55)
[2018-04-08 02:46] VITALS: BP 151/70
--- NOTE | 2018-04-08 02:46 | NUR ---
Patient discharged to home in stable condition. Written and verbal after care instructions given. Patient verbalizes understanding of instruction.IV removed. Catheter intact and site benign. Pressure and 4x4 applied to site. No bleeding noted. NO S/S OF DISTRESS NOTED UPON DISCHARGE
== END 2018-04-08 02:48 | disposition home or self-care (01) ==
LOC: ER 23:21
DX: L03.221 Cellulitis of neck (principal); L02.11 Cutaneous abscess of neck; E11.9 Type 2 diabetes mellitus without complications; E78.00 Pure hypercholesterolemia, unspecified; Z88.8 Allergy status to other drugs, medicaments and biological substances; Z79.4 Long term (current) use of insulin; Z79.82 Long term (current) use of aspirin
CPT/HCPCS: 36415; 70491-TC; 80048-TC; 85025-TC; A4606; J2270; J2405; J7040; Q9967; Z7610

== ENCOUNTER 2018-10-19 06:54 | Emergency (ER) | payer MEDICARE, MEDICAID ==
[~2018-10-19] VITALS: Ht 154.9 cm; Wt 93.1 kg
[~2018-10-19 06:54] MED LIST changes: -GEMF600T3 PO; +GEMF600T5 PO; -LOSA25TA13 PO; +LOSA25TA27 PO
--- NOTE | 2018-10-19 07:13 | NUR ---
BIBSELF C/O "OUTSIDE OF VAGINA IS ITCHING AND BURNING" X 1 WEEK. ALSO C/O R FOOT TOENAIL FUNGUS. TO ER BED 9, HOOKED TO MONITOR, AWAITING MD MENDOZA
--- NOTE | 2018-10-19 07:28 | NUR ---
DR BLOOM AT BEDSIDE
[2018-10-19] MEDS ORDERED: IBUPROFEN 600 MG TABLET PO ONE ×2 (07:30→07:33)
[2018-10-19] MEDS ORDERED: FLUCONAZOLE (100 MG) 100 MG TABLET PO ONE (07:30)
[2018-10-19] MEDS ORDERED: FLUCONAZOLE (100 MG) 100 MG TABLET ONE (07:33)
--- NOTE | 2018-10-19 07:44 | NUR ---
Patient discharged to home in stable condition. Written and verbal after care instructions given. Patient verbalizes understanding of instruction.
[2018-10-19 07:46] VITALS: BP 138/81
== END 2018-10-19 07:47 | disposition home or self-care (01) ==
LOC: ER 06:57
DX: B35.1 Tinea unguium (principal); N76.0 Acute vaginitis; E11.9 Type 2 diabetes mellitus without complications; F31.9 Bipolar disorder, unspecified; E78.00 Pure hypercholesterolemia, unspecified; Z98.890 Other specified postprocedural states; Z90.49 Acquired absence of other specified parts of digestive tract; Z90.710 Acquired absence of both cervix and uterus; Z79.82 Long term (current) use of aspirin; Z79.4 Long term (current) use of insulin; Z88.8 Allergy status to other drugs, medicaments and biological substances; Z88.3 Allergy status to other anti-infective agents; Z88.4 Allergy status to anesthetic agent
CPT/HCPCS: 99283; A4606

== ENCOUNTER 2018-11-02 13:30 | Emergency (ER) | payer MEDICARE, MEDICAID ==
[~2018-11-02] VITALS: Ht 154.9 cm; Wt 93.0 kg
[2018-11-02 13:59] VITALS: BP 127/77
[2018-11-02 14:26] LABS: BASOPHILS % (AUTO) 0.6 % (0.0-2.0); EOSINOPHILS % (AUTO) 2.1 % (0.0-6.0); HEMATOCRIT 39 % (33-45); HEMOGLOBIN 12.9 g/dL (11.5-14.8); LYMPHOCYTES # (AUTO) 1.4 /CMM (0.8-4.8); LYMPHOCYTES % (AUTO) 18.3 % (20.0-44.0); MEAN CORPUSCULAR HGB CONC 33 g/dl (31.0-36.0); MEAN CORPUSCULAR VOLUME 85 fL (82-100); MONOCYTES # (AUTO) 0.4 /CMM (0.1-1.30); MONOCYTES % (AUTO) 5.6 % (2.0-12.0); NEUTROPHILS # (AUTO) 5.7 /CMM (1.8-8.9); NEUTROPHILS % (AUTO) 73.4 % (43.0-81.0); PLATELET COUNT (AUTO) 246 /CMM (150-450); RED BLOOD CELL COUNT(AUTO) 4.58 MIL/uL (4.0-5.2); WHITE BLOOD COUNT (AUTO) 7.8 K/uL (4.3-11.0)
[2018-11-02 14:37] LABS: APPEARANCE,URINE Clear (CLEAR); BILIRUBIN,URINE Negative (NEGATIVE); BLOOD, URINE Negative Ery/uL (NEGATIVE); COLOR,URINE Yellow (YELLOW); KETONES,URINE Trace (NEGATIVE); LEUKOCYTE ESTERASE ,URINE Negative (NEGATIVE); NITRITE, URINE Negative (NEGATIVE); PROTEIN,URINE Negative (NEGATIVE); UGLUCOSE 500 MG/DL mg/dL (NEGATIVE); UROBILINOGEN,URINE 0.2 EU/dL (0.2)
[2018-11-02 14:41] LABS: CALCIUM, SERUM 8.5 mg/dL (8.5-10.1); CREATININE 0.8 mg/dL (0.6-1.3); POTASSIUM 4.3 mmol/L (3.5-5.1)
== END 2018-11-02 15:29 | disposition home or self-care (01) ==
LOC: ER 13:35
DX: E11.65 Type 2 diabetes mellitus with hyperglycemia (principal); N30.10 Interstitial cystitis (chronic) without hematuria; F31.9 Bipolar disorder, unspecified; E78.00 Pure hypercholesterolemia, unspecified; Z98.890 Other specified postprocedural states; Z90.49 Acquired absence of other specified parts of digestive tract; Z90.710 Acquired absence of both cervix and uterus; Z79.4 Long term (current) use of insulin; Z79.82 Long term (current) use of aspirin; Z88.9 Allergy status to unspecified drugs, medicaments and biological substances; Z88.5 Allergy status to narcotic agent; Z88.8 Allergy status to other drugs, medicaments and biological substances
CPT/HCPCS: 36415; 80048; 81001; 84703; 85025; 87086; 99283; A4606; 81000-TC

== ENCOUNTER 2018-11-29 09:22 | Outpatient (CLI) | payer MEDICARE, MEDICAID | END 2018-11-29 23:59 | disposition home or self-care (01) | LOC: CT 09:22 | PROVIDERS: ATTEND Family Medicine | DX: J34.2 Deviated nasal septum (principal); J34.89 Other specified disorders of nose and nasal sinuses | CPT/HCPCS: 70486-TC ==

== ENCOUNTER 2018-12-26 00:30 | Emergency (ER) | payer MEDICARE, MEDICAID ==
[~2018-12-26] VITALS: Ht 152.4 cm; Wt 99.8 kg
--- NOTE | 2018-12-26 01:22 | NUR ---
PT BIBSELF C/O "HAVING CHILLS, DIARRHEA AND NAUSEA, ALSO ABD PAIN" -SOB, -N/V -DIZZY NOTED. PT AOX4. NAD NOTED. RESP EVEN AND UNLABORED. PT ON MONITOR IN BED 9. WILL CONTINUE TO MONITOR.
[2018-12-26 01:56] LABS: BASOPHILS # (AUTO) 0.1 /CMM (0.0-0.2); BASOPHILS % (AUTO) 0.6 % (0.0-2.0); EOSINOPHILS % (AUTO) 2.3 % (0.0-6.0); HEMATOCRIT 38 % (33-45); HEMOGLOBIN 12.9 g/dL (11.5-14.8); LYMPHOCYTES # (AUTO) 1.6 /CMM (0.8-4.8); LYMPHOCYTES % (AUTO) 18.3 % (20.0-44.0); MEAN CORPUSCULAR HGB CONC 34 g/dl (31.0-36.0); MEAN CORPUSCULAR VOLUME 85 fL (82-100); MONOCYTES # (AUTO) 0.6 /CMM (0.1-1.30); MONOCYTES % (AUTO) 7.1 % (2.0-12.0); NEUTROPHILS # (AUTO) 6.2 /CMM (1.8-8.9); NEUTROPHILS % (AUTO) 71.7 % (43.0-81.0); PLATELET COUNT (AUTO) 244 /CMM (150-450); WHITE BLOOD COUNT (AUTO) 8.7 K/uL (4.3-11.0)
[2018-12-26 02:02] LABS: APPEARANCE,URINE CLEAR (CLEAR); BILIRUBIN,URINE NEGATIVE (NEGATIVE); BLOOD, URINE NEGATIVE Ery/uL (NEGATIVE); COLOR,URINE YELLOW (YELLOW); KETONES,URINE NEGATIVE (NEGATIVE); LEUKOCYTE ESTERASE ,URINE NEGATIVE (NEGATIVE); NITRITE, URINE NEGATIVE (NEGATIVE); PH,URINE 5.5 (5.0-8.0); PROTEIN,URINE NEGATIVE (NEGATIVE); UGLUCOSE TRACE mg/dL (NEGATIVE); UROBILINOGEN,URINE 0.2 EU/dL (0.2)
[2018-12-26] MEDS ORDERED: ONDANSETRON HCL/PF 4 MG/2 ML VIAL ONE (02:12)
[2018-12-26 02:13] LABS: BACTERIA,URINE Few /HPF (None Seen); RBC,URINE 0-2 /HPF (0-2); SQUAMOUS EPITHELIAL CELL,UR Few /HPF (None Seen); WBC,URINE 0-2 /HPF (0-3); YEAST,URINE Few /HPF (None Seen)
[2018-12-26] MEDS: ONDANSETRON HCL/PF 4 MG/2 ML VIAL IVP ONE (02:19)
[2018-12-26] MEDS: IV NS 0.9% 1,000 ML BAG IV ONE (02:19)
[2018-12-26 02:36] LABS: CARBON DIOXIDE 27 mmol/L (21-32); CHLORIDE 102 mmol/L (98-107); CREATININE 0.7 mg/dL (0.6-1.3); GLUCOSE 102 mg/dL (74-106); POTASSIUM 3.9 mmol/L (3.5-5.1); SODIUM SERUM 136 mmol/L (136-145); UREA NITROGEN, BLOOD 16 mg/dL (7-18)
[2018-12-26 02:42] LABS: ALANINE AMINOTRANSFERASE 26 U/L (12-78); ALBUMIN 3.3 g/dL (3.4-5.0); ALKALINE PHOSPHATASE 87 U/L (46-116); ASPARTATE AMINOTRANSFERASE 11 U/L (15-37); BILIRUBIN,DIRECT 0.1 mg/dL (0.0-0.2); BILIRUBIN,TOTAL 0.3 mg/dL (0.2-1.0); LIPASE 58 U/L (73-393); TOTAL PROTEIN, SERUM 6.6 g/dL (6.4-8.2)
--- NOTE | 2018-12-26 03:41 | NUR ---
IV removed. Catheter intact and site benign. Pressure and 4x4 applied to site. No bleeding noted.Patient discharged to home in stable condition. Written and verbal after care instructions given. Patient verbalizes understanding of instruction. PT AMBULATORY WITH STEADY GAIT.
[2018-12-26 06:04] VITALS: BP 104/72
== END 2018-12-26 06:08 | disposition home or self-care (01) ==
LOC: ER 00:30
DX: K52.9 Noninfective gastroenteritis and colitis, unspecified (principal); I10 Essential (primary) hypertension; F31.9 Bipolar disorder, unspecified; E11.9 Type 2 diabetes mellitus without complications; E78.00 Pure hypercholesterolemia, unspecified; Z98.890 Other specified postprocedural states; Z90.49 Acquired absence of other specified parts of digestive tract; Z90.710 Acquired absence of both cervix and uterus; Z79.82 Long term (current) use of aspirin; Z79.4 Long term (current) use of insulin; Z88.9 Allergy status to unspecified drugs, medicaments and biological substances; Z88.5 Allergy status to narcotic agent; Z88.8 Allergy status to other drugs, medicaments and biological substances; Z88.7 Allergy status to serum and vaccine
CPT/HCPCS: 36415; 71045; 74176; 80048; 80076; 81001; 83690; 84484; 84703; 85025; 85730; 87804; 93005; 96361; 96374; 99284; J2405; J7030; 81000-TC; 87400

== ENCOUNTER 2019-09-30 13:13 | Outpatient (CLI) | payer MEDICARE, MEDICAID ==
[~2019-09-30 13:13] MED LIST changes: -TRAZ-214 PO; +TRAZ-257 PO
== END 2019-09-30 23:59 | disposition home or self-care (01) ==
LOC: RAD 13:13
PROVIDERS: ATTEND Family Medicine
DX: R05 Cough (principal)
CPT/HCPCS: 71046

== ENCOUNTER 2020-03-31 18:51 | Emergency (ER) | payer MEDICARE, OTHER ==
[~2020-03-31] VITALS: Ht 154.9 cm; Wt 111.6 kg
[2020-03-31] MEDS ORDERED: IV NS 0.9% 500 ML BAG IV ONE (19:00)
[2020-03-31] MEDS ORDERED: ONDANSETRON HCL/PF 4 MG/2 ML VIAL IVP ONE (19:00)
[2020-03-31] MEDS ORDERED: ONDANSETRON HCL/PF 4 MG/2 ML VIAL ONE (19:14)
[2020-03-31 19:16] LABS: APPEARANCE,URINE Clear (CLEAR); BASOPHILS # (AUTO) 0.1 /CMM (0.0-0.2); BASOPHILS % (AUTO) 0.6 % (0.0-2.0); BILIRUBIN,URINE Negative (NEGATIVE); BLOOD, URINE Negative Ery/uL (NEGATIVE); COLOR,URINE Yellow (YELLOW); EOSINOPHILS % (AUTO) 2.8 % (0.0-6.0); HEMATOCRIT 37 % (33-45); HEMOGLOBIN 12.3 g/dL (11.5-14.8); KETONES,URINE Negative (NEGATIVE); LEUKOCYTE ESTERASE ,URINE Negative (NEGATIVE); LYMPHOCYTES # (AUTO) 1.6 /CMM (0.8-4.8); LYMPHOCYTES % (AUTO) 18.9 % (20.0-44.0); MEAN CORPUSCULAR HGB CONC 34 g/dl (31.0-36.0); MEAN CORPUSCULAR VOLUME 86 fL (82-100); MONOCYTES # (AUTO) 0.5 /CMM (0.1-1.30); MONOCYTES % (AUTO) 5.4 % (2.0-12.0); NEUTROPHILS # (AUTO) 6.1 /CMM (1.8-8.9); NEUTROPHILS % (AUTO) 72.3 % (43.0-81.0); NITRITE, URINE Negative (NEGATIVE); PLATELET COUNT (AUTO) 254 /CMM (150-450); PROTEIN,URINE Negative (NEGATIVE); RED BLOOD CELL COUNT(AUTO) 4.28 MIL/uL (4.0-5.2); UGLUCOSE 100 MG/DL mg/dL (NEGATIVE); UROBILINOGEN,URINE 0.2 EU/dL (0.2); WHITE BLOOD COUNT (AUTO) 8.5 K/uL (4.3-11.0)
[2020-03-31 19:24] LABS: CALCIUM, SERUM 9.1 mg/dL (8.5-10.1); CARBON DIOXIDE 28 mmol/L (21-32); CHLORIDE 103 mmol/L (98-107); CREATININE 0.7 mg/dL (0.6-1.3); GLUCOSE 229 mg/dL (74-106); POTASSIUM 4.1 mmol/L (3.5-5.1); SODIUM SERUM 138 mmol/L (136-145); UREA NITROGEN, BLOOD 15 mg/dL (7-18)
[2020-03-31 19:30] LABS: ALANINE AMINOTRANSFERASE 23 U/L (12-78); ALBUMIN 3.7 g/dL (3.4-5.0); ALKALINE PHOSPHATASE 110 U/L (46-116); ASPARTATE AMINOTRANSFERASE 10 U/L (15-37); BILIRUBIN,DIRECT 0.1 mg/dL (0.0-0.2); BILIRUBIN,TOTAL 0.4 mg/dL (0.2-1.0); LIPASE 47 U/L (73-393); TOTAL PROTEIN, SERUM 7.1 g/dL (6.4-8.2)
--- NOTE | 2020-03-31 19:30 | NUR ---
BIBS FROM HOME TO ER BED 7. AAOX4. NOT IN RESP DISTRESS, BREATHING EVEN AND UNLABORED. AMBULATORY WITH AN AIDE OF A FRONT WHEELED WALKER. CAME IN FOR UPPER AND LOWER ABDOMINAL PAIN SINCE SUNDAY. PT RATES HER PAIN 8/10 SHARP. DENIES NAUSEA, VOMMITING NOR DIARRHEA. PT ALSO DENIES PAIN UPON URINATION WELL HEMATURIA. AWARE. ORDERS RECEIVED. IV LINE OBTAINED ON R AC 20G, BLOOD DRAWN AND GIVEN TO APPAREL MANUFACTURE INSTRUCTOR AT BEDSIDE.
[2020-03-31] MEDS ORDERED: MORPHINE SULFATE INJ 4 MG/ML DISP.SYRIN ONE (20:18)
[2020-03-31] MEDS ORDERED: MAG HYDROX/AL HYDROX/SIMETH 30 ML UDC PO ONE (20:30)
[2020-03-31] MEDS ORDERED: FAMOTIDINE/PF INJ 20 MG/2 ML VIAL IV ONE ×2 (20:30→20:59)
[2020-03-31] MEDS ORDERED: MORPHINE SULFATE INJ 2 MG/ML DISP.SYRIN IV ONE (20:30)
[2020-03-31] MEDS ORDERED: LIDOCAINE VISCOUS 2% UD 15 ML UDC MM ONE (20:30)
--- NOTE | 2020-03-31 20:38 | NUR ---
PT BACK FROM CT
[2020-03-31] MEDS ORDERED: MAG HYDROX/AL HYDROX/SIMETH 30 ML UDC ONE (20:59)
[2020-03-31] MEDS ORDERED: LIDOCAINE VISCOUS 2% UD 15 ML UDC ONE (20:59)
--- NOTE | 2020-03-31 22:13 | NUR ---
SPOKE WITH LORRAINE FROM [facility] FOR PT TRANSPORT BACK TO HER RESIDENCE. RESERVATION NUMBER: [id number] WILL CALL BACK FOR TRANSPORT INFORMATION
--- NOTE | 2020-03-31 22:33 | NUR ---
Patient discharged to home in stable condition. Written and verbal after care instructions given. Patient verbalizes understanding of instruction.IV removed. Catheter intact and site benign. Pressure and 4x4 applied to site. No bleeding noted. Pt ambulatory with a steady gait w/ an aide of a front wheeled walker. Pt is going home on a Lyft arranged by [facility].
[2020-03-31 22:35] VITALS: BP 140/78
== END 2020-03-31 22:35 | disposition home or self-care (01) ==
LOC: ER 18:54
DX: R10.13 Epigastric pain (principal); R10.30 Lower abdominal pain, unspecified; R11.2 Nausea with vomiting, unspecified; I10 Essential (primary) hypertension; E78.5 Hyperlipidemia, unspecified; E11.9 Type 2 diabetes mellitus without complications; E66.8 Other obesity; Z68.42 Body mass index [BMI] 45.0-49.9, adult; Z90.49 Acquired absence of other specified parts of digestive tract; Z90.710 Acquired absence of both cervix and uterus; Z88.8 Allergy status to other drugs, medicaments and biological substances; Z88.9 Allergy status to unspecified drugs, medicaments and biological substances; Z79.4 Long term (current) use of insulin; Z79.82 Long term (current) use of aspirin; Z79.899 Other long term (current) drug therapy
CPT/HCPCS: 36415; 71045; 74176; 80048; 80076; 81001; 83690; 84484; 85025; 93005; 96374; 99285; J3490; J7040; 81000-TC; J2270; J2405

== ENCOUNTER 2020-04-12 16:57 | Emergency (ER) | payer MEDICARE, MEDICAID ==
[~2020-04-12] VITALS: Ht 154.9 cm; Wt 110.7 kg
--- NOTE | 2020-04-12 17:09 | NUR ---
A/Ox4, c/o dysuria and lower abdomen pain x3 weeks. To bed #4, collected urine for studies.
[2020-04-12 17:29] LABS: APPEARANCE,URINE Clear (CLEAR); BILIRUBIN,URINE Negative (NEGATIVE); BLOOD, URINE Negative Ery/uL (NEGATIVE); COLOR,URINE Yellow (YELLOW); KETONES,URINE Negative (NEGATIVE); LEUKOCYTE ESTERASE ,URINE Negative (NEGATIVE); NITRITE, URINE Negative (NEGATIVE); PROTEIN,URINE Negative (NEGATIVE); UGLUCOSE Negative (NEGATIVE); UROBILINOGEN,URINE 0.2 EU/dL (0.2)
[2020-04-12] MEDS ORDERED: TDAP [DIPH/PERTUSSIS/TET] 0.5 ML VIAL IM ONE (18:53)
--- NOTE | 2020-04-12 19:31 | NUR ---
Patient discharged to home in stable condition. Rx and Written and verbal after care instructions given. Patient verbalizes understanding of instruction.
[2020-04-12 19:32] VITALS: BP 128/65
== END 2020-04-12 19:32 | disposition home or self-care (01) ==
LOC: ER 17:05
DX: N39.0 Urinary tract infection, site not specified (principal); R10.2 Pelvic and perineal pain; I10 Essential (primary) hypertension; E78.5 Hyperlipidemia, unspecified; E11.9 Type 2 diabetes mellitus without complications; E78.00 Pure hypercholesterolemia, unspecified; Z98.890 Other specified postprocedural states; Z90.49 Acquired absence of other specified parts of digestive tract; Z88.8 Allergy status to other drugs, medicaments and biological substances; Z79.899 Other long term (current) drug therapy; Z79.82 Long term (current) use of aspirin; Z79.4 Long term (current) use of insulin
CPT/HCPCS: 76856; 81001; 84703; 99284; A6403; J7030; 81000-TC; 90715

== ENCOUNTER 2020-05-24 19:51 | Emergency (ER) | payer MEDICARE, OTHER ==
[~2020-05-24] VITALS: Ht 154.9 cm; Wt 108.9 kg
[2020-05-24 19:51] VITALS: BP 148/79
[~2020-05-24 19:51] MED LIST changes: -ASPI-1152 PO; +ASPI-1420 PO
--- NOTE | 2020-05-24 20:12 | NUR ---
PT AAOX4. AMBULATORY, BIBSELF. C/O R SIDED TOOTHACHE SINCE THIS AM AFTER EATING WALNUTS; THINKS SHE CHIPPED HER TOOTH. PLACED IN BED 2 ON MONITOR AND PULSE OX. VSS. AWAITING MD FOR REJI.
== END 2020-05-24 20:26 | disposition home or self-care (01) ==
LOC: ER 19:57
DX: S02.5XXA Fracture of tooth (traumatic), initial encounter for closed fracture (principal); I10 Essential (primary) hypertension; E78.5 Hyperlipidemia, unspecified; E11.9 Type 2 diabetes mellitus without complications; Z90.710 Acquired absence of both cervix and uterus; Z90.49 Acquired absence of other specified parts of digestive tract; Z98.890 Other specified postprocedural states; Z88.8 Allergy status to other drugs, medicaments and biological substances; Z88.9 Allergy status to unspecified drugs, medicaments and biological substances; Z79.899 Other long term (current) drug therapy; Z79.82 Long term (current) use of aspirin; Z79.4 Long term (current) use of insulin; X58.XXXA Exposure to other specified factors, initial encounter; Y93.89 Activity, other specified; Y92.89 Other specified places as the place of occurrence of the external cause; Y99.8 Other external cause status

== ENCOUNTER 2020-08-29 14:11 | Emergency (ER) | payer MEDICARE, OTHER ==
[~2020-08-29] VITALS: Ht 154.9 cm; Wt 101.6 kg
--- NOTE | 2020-08-29 14:30 | NUR ---
BIB SELF C/O ONGOING MERINO & LT ARM PAIN FROM A FALL ON 08/18/20 PER PT. VS CHECKED. STABLE. AWAITING MD MENDOZA
--- NOTE | 2020-08-29 15:13 | NUR ---
pt out for ct
[2020-08-29 16:38] VITALS: BP 130/68
== END 2020-08-29 16:39 | disposition home or self-care (01) ==
LOC: ER 14:17
DX: F07.81 Postconcussional syndrome (principal); M54.2 Cervicalgia; R51.9 Headache, unspecified; I10 Essential (primary) hypertension; E78.5 Hyperlipidemia, unspecified; E11.9 Type 2 diabetes mellitus without complications; Z90.49 Acquired absence of other specified parts of digestive tract; Z90.710 Acquired absence of both cervix and uterus; Z98.890 Other specified postprocedural states; Z88.8 Allergy status to other drugs, medicaments and biological substances; Z88.9 Allergy status to unspecified drugs, medicaments and biological substances; Z79.4 Long term (current) use of insulin; Z79.82 Long term (current) use of aspirin; Z79.899 Other long term (current) drug therapy
CPT/HCPCS: 70450-TC; 72125-TC

== ENCOUNTER 2020-09-19 15:26 | Emergency (ER) | payer MEDICARE, MEDICAID ==
[~2020-09-19] VITALS: Ht 157.5 cm; Wt 108.9 kg
[2020-09-19 16:17] LABS: BASOPHILS # (AUTO) 0.1 /CMM (0.0-0.2); BASOPHILS % (AUTO) 0.7 % (0.0-2.0); HEMATOCRIT 36 % (33-45); HEMOGLOBIN 11.8 g/dL (11.5-14.8); LYMPHOCYTES # (AUTO) 1.5 /CMM (0.8-4.8); LYMPHOCYTES % (AUTO) 19.2 % (20.0-44.0); MEAN CORPUSCULAR HGB CONC 33 g/dl (31.0-36.0); MEAN CORPUSCULAR VOLUME 84 fL (82-100); MONOCYTES # (AUTO) 0.3 /CMM (0.1-1.30); MONOCYTES % (AUTO) 4.5 % (2.0-12.0); NEUTROPHILS # (AUTO) 5.6 /CMM (1.8-8.9); NEUTROPHILS % (AUTO) 72.6 % (43.0-81.0); PLATELET COUNT (AUTO) 258 /CMM (150-450); RED BLOOD CELL COUNT(AUTO) 4.31 MIL/uL (4.0-5.2); WHITE BLOOD COUNT (AUTO) 7.7 K/uL (4.3-11.0)
[2020-09-19 16:29] LABS: CALCIUM, SERUM 9.2 mg/dL (8.5-10.1); CARBON DIOXIDE 31 mmol/L (21-32); CHLORIDE 104 mmol/L (98-107); CREATININE 0.9 mg/dL (0.6-1.3); GLUCOSE 95 mg/dL (74-106); POTASSIUM 4.6 mmol/L (3.5-5.1); SODIUM SERUM 138 mmol/L (136-145); UREA NITROGEN, BLOOD 22 mg/dL (7-18)
[2020-09-19] MEDS ORDERED: ACETAMINOPHEN 325 MG TABLET PO ONE (16:30)
[2020-09-19] MEDS ORDERED: ACETAMINOPHEN 325 MG TABLET ONE (17:10)
[2020-09-19 17:17] VITALS: BP 125/70
--- NOTE | 2020-09-19 17:17 | NUR ---
Patient discharged to home in stable condition. Written and verbal after care instructions given. Patient verbalizes understanding of instruction.
== END 2020-09-19 17:18 | disposition home or self-care (01) ==
LOC: ER 15:31
DX: R07.9 Chest pain, unspecified (principal); R06.02 Shortness of breath; Z20.828 Contact with and (suspected) exposure to other viral communicable diseases; Z90.49 Acquired absence of other specified parts of digestive tract; F31.9 Bipolar disorder, unspecified; E78.5 Hyperlipidemia, unspecified; Z79.899 Other long term (current) drug therapy; Z79.4 Long term (current) use of insulin; Z79.82 Long term (current) use of aspirin; E11.9 Type 2 diabetes mellitus without complications; I10 Essential (primary) hypertension
CPT/HCPCS: 36415; 71045-TC; 80048-TC; 84484-TC; 85025-TC; 85378-TC; C9803; U0003

== ENCOUNTER 2020-11-21 10:44 | Emergency (ER) | payer MEDICARE, OTHER ==
[~2020-11-21] VITALS: Ht 154.9 cm; Wt 106.1 kg
[~2020-11-21 10:44] MED LIST changes: -GEMF600T5 PO; +GEMF600T90 PO
--- NOTE | 2020-11-21 10:50 | NUR ---
BIBS C/O LOWER ABDOMINAL PAIN R/T BACK x 1 WEEK. TO ER BED 11, HOOKED TO MONITOR, CHANGED TO HOSP GOWN, WARM BLANKET PROVIDED, PATIEMT AAO x 4. NAD NOTED. AWAITING MD MENDOZA
--- NOTE | 2020-11-21 11:05 | NUR ---
DR LÓPEZ AT BEDSIDE FOR EVAL
--- NOTE | 2020-11-21 11:11 | NUR ---
URINE SAMPLE COLLECTED AND SENT TO LAB
[2020-11-21 11:34] LABS: BASOPHILS % (AUTO) 0.5 % (0.0-2.0); HEMATOCRIT 36 % (33-45); HEMOGLOBIN 11.8 g/dL (11.5-14.8); LYMPHOCYTES # (AUTO) 1.4 /CMM (0.8-4.8); LYMPHOCYTES % (AUTO) 16.9 % (20.0-44.0); MEAN CORPUSCULAR HGB CONC 33 g/dl (31.0-36.0); MEAN CORPUSCULAR VOLUME 84 fL (82-100); MONOCYTES # (AUTO) 0.5 /CMM (0.1-1.30); MONOCYTES % (AUTO) 6.5 % (2.0-12.0); NEUTROPHILS % (AUTO) 73.1 % (43.0-81.0); PLATELET COUNT (AUTO) 265 /CMM (150-450); RED BLOOD CELL COUNT(AUTO) 4.29 MIL/uL (4.0-5.2); WHITE BLOOD COUNT (AUTO) 8.2 K/uL (4.3-11.0)
[2020-11-21 11:35] LABS: BILIRUBIN,URINE NEGATIVE (NEGATIVE); COLOR,URINE YELLOW (YELLOW); LEUKOCYTE ESTERASE ,URINE NEGATIVE (NEGATIVE); NITRITE, URINE NEGATIVE (NEGATIVE); PROTEIN,URINE NEGATIVE (NEGATIVE); UGLUCOSE NEGATIVE (NEGATIVE); UROBILINOGEN,URINE 0.2 EU/dL (0.2)
[2020-11-21 11:46] LABS: CALCIUM, SERUM 8.8 mg/dL (8.5-10.1); CREATININE 0.7 mg/dL (0.6-1.3); POTASSIUM 4.4 mmol/L (3.5-5.1)
[2020-11-21 11:59] LABS: ALBUMIN 3.6 g/dL (3.4-5.0); BILIRUBIN,DIRECT 0.1 mg/dL (0.0-0.2); BILIRUBIN,TOTAL 0.3 mg/dL (0.2-1.0); TOTAL PROTEIN, SERUM 7.1 g/dL (6.4-8.2)
--- NOTE | 2020-11-21 12:50 | NUR ---
Patient discharged to home in stable condition. Written and verbal after care instructions given. Patient verbalizes understanding of instruction.
[2020-11-21 12:51] VITALS: BP 149/78
== END 2020-11-21 12:53 | disposition home or self-care (01) ==
LOC: ER 10:50
DX: R10.84 Generalized abdominal pain (principal); R10.30 Lower abdominal pain, unspecified; I10 Essential (primary) hypertension; E78.5 Hyperlipidemia, unspecified; E11.9 Type 2 diabetes mellitus without complications; F31.9 Bipolar disorder, unspecified; Z98.890 Other specified postprocedural states; Z90.49 Acquired absence of other specified parts of digestive tract; Z88.8 Allergy status to other drugs, medicaments and biological substances; Z79.899 Other long term (current) drug therapy; Z79.82 Long term (current) use of aspirin; Z79.4 Long term (current) use of insulin
CPT/HCPCS: 36415; 80048-TC; 80076-TC; 83690-TC; 84703-TC; 85025-TC

== ENCOUNTER 2020-12-26 06:30 | Emergency (ER) | payer MEDICARE, OTHER ==
[~2020-12-26] VITALS: Ht 154.9 cm; Wt 106.1 kg
[2020-12-26 06:41] VITALS: BP 146/79
--- NOTE | 2020-12-26 06:41 | NUR ---
PT AAOX4. BIBSELF C/O ABDONIMAL PAIN FOR THE PAST MONTH BUT WORST FOR THE LAST 2 DAYS. REESE N/V. PLACED IN BED 11 ON MONTIOR AND PULSE OX. AWAITING ER MD FOR EVAL AND ORDERS.
[2020-12-26] MEDS ORDERED: LIDOCAINE VISCOUS 2% UD 15 ML UDC ONE (07:16)
[2020-12-26] MEDS ORDERED: MAG HYDROX/AL HYDROX/SIMETH 30 ML UDC ONE (07:16)
[2020-12-26 07:30] LABS: BASOPHILS # (AUTO) 0.1 /CMM (0.0-0.2); BASOPHILS % (AUTO) 0.6 % (0.0-2.0); EOSINOPHILS % (AUTO) 3.6 % (0.0-6.0); HEMATOCRIT 34 % (33-45); HEMOGLOBIN 11.3 g/dL (11.5-14.8); LYMPHOCYTES # (AUTO) 1.5 /CMM (0.8-4.8); LYMPHOCYTES % (AUTO) 18.3 % (20.0-44.0); MEAN CORPUSCULAR HGB CONC 33 g/dl (31.0-36.0); MEAN CORPUSCULAR VOLUME 84 fL (82-100); MONOCYTES # (AUTO) 0.6 /CMM (0.1-1.30); NEUTROPHILS # (AUTO) 5.9 /CMM (1.8-8.9); NEUTROPHILS % (AUTO) 70.5 % (43.0-81.0); PLATELET COUNT (AUTO) 263 /CMM (150-450); RED BLOOD CELL COUNT(AUTO) 4.07 MIL/uL (4.0-5.2); WHITE BLOOD COUNT (AUTO) 8.3 K/uL (4.3-11.0)
[2020-12-26] MEDS ORDERED: LIDOCAINE VISCOUS 2% UD 15 ML UDC MM ONE (07:30)
[2020-12-26] MEDS ORDERED: IV NS 0.9% 500 ML BAG IV ONE (07:30)
[2020-12-26] MEDS ORDERED: MAG HYDROX/AL HYDROX/SIMETH 30 ML UDC PO ONE (07:30)
--- NOTE | 2020-12-26 08:15 | NUR ---
Patient awake alert non distress continue to monitor .
[2020-12-26 08:43] LABS: CALCIUM, SERUM 8.4 mg/dL (8.5-10.1); CREATININE 0.7 mg/dL (0.6-1.3); POTASSIUM 4.2 mmol/L (3.5-5.1)
[2020-12-26 08:52] LABS: ALBUMIN 3.2 g/dL (3.4-5.0); BILIRUBIN,DIRECT 0.1 mg/dL (0.0-0.2); BILIRUBIN,TOTAL 0.3 mg/dL (0.2-1.0); TOTAL PROTEIN, SERUM 6.6 g/dL (6.4-8.2)
[2020-12-26] MEDS ORDERED: SUCR1TAB31 PO (09:18)
[2020-12-26] MEDS ORDERED: PANT40TA2 PO (09:18)
--- NOTE | 2020-12-26 09:45 | NUR ---
Called [phone] for ride home spoke to [facility] number [id number] ETA 1-3 hours .
--- NOTE | 2020-12-26 09:49 | NUR ---
Patient aware ETA 1-3 hours appreaciated .Patient DC home instruction given agrees to see PMD in 2 days verbalized understnding removed LAC saline lock noted no edema no pain .Patient able to walk with walker non difficulties .
== END 2020-12-26 09:48 | disposition home or self-care (01) ==
LOC: ER 06:32
DX: K29.70 Gastritis, unspecified, without bleeding (principal); I10 Essential (primary) hypertension; E78.00 Pure hypercholesterolemia, unspecified; E11.9 Type 2 diabetes mellitus without complications; F31.9 Bipolar disorder, unspecified; Z90.49 Acquired absence of other specified parts of digestive tract; Z98.890 Other specified postprocedural states; Z79.899 Other long term (current) drug therapy; Z79.82 Long term (current) use of aspirin; Z79.84 Long term (current) use of oral hypoglycemic drugs
CPT/HCPCS: 36415; 74018; 80048; 80076; 83690; 85025; 99284; J7040

== ENCOUNTER 2021-01-18 14:36 | Emergency (ER) | payer MEDICARE, OTHER ==
[~2021-01-18] VITALS: Ht 149.9 cm; Wt 110.2 kg
[~2021-01-18 14:36] MED LIST changes: +PANT40TA2 PO; +SUCR1TAB31 PO
--- NOTE | 2021-01-18 14:55 | NUR ---
THE PATIENT IS IN ER BED # 4 WITH C/O ABDOMINAL PAIN AND NAUSEA SINCE LAST NIGHT. RATES PAIN 8/10. IN ROOM AIR AND DENIES SOB. RESPIRATION REGULAR AND UNLABORED. PATIENT IS ATTACHED ON A MONITOR. WARM BLANKET PROVIDED FOR COMFORT. WILL CONTINUE TO MONITOR THE PATIENT.
--- NOTE | 2021-01-18 15:13 | NUR ---
blood collected and sent to the lab
[2021-01-18] MEDS ORDERED: ONDANSETRON HCL/PF 4 MG/2 ML VIAL ONE (15:15)
[2021-01-18] MEDS ORDERED: MORPHINE SULFATE INJ 4 MG/ML DISP.SYRIN ONE ×2 (15:16→16:26)
[2021-01-18 15:17] LABS: BASOPHILS % (AUTO) 0.4 % (0.0-2.0); EOSINOPHILS % (AUTO) 2.2 % (0.0-6.0); HEMATOCRIT 35 % (33-45); HEMOGLOBIN 11.6 g/dL (11.5-14.8); LYMPHOCYTES # (AUTO) 1.4 /CMM (0.8-4.8); LYMPHOCYTES % (AUTO) 17.2 % (20.0-44.0); MEAN CORPUSCULAR HGB CONC 33 g/dl (31.0-36.0); MEAN CORPUSCULAR VOLUME 85 fL (82-100); MONOCYTES # (AUTO) 0.5 /CMM (0.1-1.30); NEUTROPHILS # (AUTO) 6.2 /CMM (1.8-8.9); NEUTROPHILS % (AUTO) 74.2 % (43.0-81.0); PLATELET COUNT (AUTO) 256 /CMM (150-450); RED BLOOD CELL COUNT(AUTO) 4.13 MIL/uL (4.0-5.2); WHITE BLOOD COUNT (AUTO) 8.4 K/uL (4.3-11.0)
[2021-01-18 15:21] LABS: BILIRUBIN,URINE NEGATIVE (NEGATIVE); COLOR,URINE YELLOW (YELLOW); LEUKOCYTE ESTERASE ,URINE NEGATIVE (NEGATIVE); NITRITE, URINE NEGATIVE (NEGATIVE); PROTEIN,URINE NEGATIVE (NEGATIVE); UGLUCOSE NEGATIVE (NEGATIVE); UROBILINOGEN,URINE 0.2 EU/dL (0.2)
[2021-01-18 15:27] LABS: CALCIUM, SERUM 8.7 mg/dL (8.5-10.1); CREATININE 0.5 mg/dL (0.6-1.3); POTASSIUM 4.1 mmol/L (3.5-5.1)
[2021-01-18] MEDS ORDERED: IV NS 0.9% 1,000 ML BAG IV ONE (15:30)
[2021-01-18] MEDS ORDERED: ONDANSETRON HCL/PF 4 MG/2 ML VIAL IVP ONE (15:30)
[2021-01-18] MEDS ORDERED: MORPHINE SULFATE INJ 2 MG/ML DISP.SYRIN IV ONE ×2 (15:30→16:30)
[2021-01-18 15:34] LABS: ALBUMIN 3.5 g/dL (3.4-5.0); BILIRUBIN,DIRECT 0.1 mg/dL (0.0-0.2); BILIRUBIN,TOTAL 0.3 mg/dL (0.2-1.0); TOTAL PROTEIN, SERUM 6.9 g/dL (6.4-8.2)
[2021-01-18] MEDS ORDERED: OMEP40CA13 PO (16:19)
--- NOTE | 2021-01-18 16:39 | NUR ---
Patient discharged to home in stable condition. Written and verbal after care instructions given. Patient verbalizes understanding of instruction. Went home in stable condition.
--- NOTE | 2021-01-18 16:41 | NUR ---
Patient discharged to home in stable condition. Written and verbal after care instructions given. Patient verbalizes understanding of instruction. The patient left ER in stable conditon.
[2021-01-18 16:42] VITALS: BP 154/71
== END 2021-01-18 16:42 | disposition home or self-care (01) ==
LOC: ER 14:43
DX: R10.10 Upper abdominal pain, unspecified (principal); R10.13 Epigastric pain; R11.0 Nausea; I10 Essential (primary) hypertension; E78.5 Hyperlipidemia, unspecified; E11.9 Type 2 diabetes mellitus without complications; F31.9 Bipolar disorder, unspecified; E78.00 Pure hypercholesterolemia, unspecified; Z98.890 Other specified postprocedural states; Z90.49 Acquired absence of other specified parts of digestive tract; Z90.710 Acquired absence of both cervix and uterus; Z88.8 Allergy status to other drugs, medicaments and biological substances; Z88.9 Allergy status to unspecified drugs, medicaments and biological substances; Z79.82 Long term (current) use of aspirin; Z79.4 Long term (current) use of insulin; Z79.899 Other long term (current) drug therapy
CPT/HCPCS: 36415; 74176; 80048; 80076; 81003; 83690; 84703; 85025; 96361; 96374; 96375; 96376; 99284; J2270 ×2; J2405; J7030

== ENCOUNTER 2021-01-26 13:33 | Emergency (ER) | payer MEDICARE, OTHER ==
[~2021-01-26] VITALS: Ht 149.9 cm; Wt 112.9 kg
[~2021-01-26 13:33] MED LIST changes: +OMEP40CA13 PO
--- NOTE | 2021-01-26 13:52 | NUR ---
EPIGASTRIC PAIN, NAUSEA SINCE LAST NIGHT. RATES PAIN 8/10. RESPIRATION REGULAR AND UNLABORED. ATTACHED TO A MONITOR. WILL CONTINUE TO MONITOR THE PATIENT.
[2021-01-26 13:56] LABS: BASOPHILS % (AUTO) 0.6 % (0.0-2.0); EOSINOPHILS % (AUTO) 3.1 % (0.0-6.0); HEMATOCRIT 36 % (33-45); HEMOGLOBIN 11.8 g/dL (11.5-14.8); LYMPHOCYTES # (AUTO) 1.3 /CMM (0.8-4.8); LYMPHOCYTES % (AUTO) 18.2 % (20.0-44.0); MEAN CORPUSCULAR HGB CONC 33 g/dl (31.0-36.0); MEAN CORPUSCULAR VOLUME 85 fL (82-100); MONOCYTES # (AUTO) 0.5 /CMM (0.1-1.30); MONOCYTES % (AUTO) 7.2 % (2.0-12.0); NEUTROPHILS # (AUTO) 5.1 /CMM (1.8-8.9); NEUTROPHILS % (AUTO) 70.9 % (43.0-81.0); PLATELET COUNT (AUTO) 254 /CMM (150-450); RED BLOOD CELL COUNT(AUTO) 4.26 MIL/uL (4.0-5.2); WHITE BLOOD COUNT (AUTO) 7.1 K/uL (4.3-11.0)
[2021-01-26 14:05] LABS: CALCIUM, SERUM 8.4 mg/dL (8.5-10.1); CARBON DIOXIDE 28 mmol/L (21-32); CHLORIDE 103 mmol/L (98-107); CREATININE 0.6 mg/dL (0.6-1.3); GLUCOSE 173 mg/dL (74-106); POTASSIUM 4.2 mmol/L (3.5-5.1); SODIUM SERUM 137 mmol/L (136-145); UREA NITROGEN, BLOOD 13 mg/dL (7-18)
[2021-01-26 14:17] LABS: B-TYPE NATRIURETIC PEPTIDE 61 PG/ML (0-125)
[2021-01-26] MEDS ORDERED: MAG HYDROX/AL HYDROX/SIMETH 30 ML UDC PO ONE (14:30)
[2021-01-26] MEDS ORDERED: PANTOPRAZOLE 40 MG VIAL IV ONE (14:30)
[2021-01-26] MEDS ORDERED: ONDANSETRON HCL/PF - ER 4 MG/2 ML VIAL IV ONE (14:30)
[2021-01-26] MEDS ORDERED: LIDOCAINE VISCOUS 2% UD 15 ML UDC MM ONE (14:30)
[2021-01-26] MEDS ORDERED: LIDOCAINE VISCOUS 2% UD 15 ML UDC ONE (14:34)
[2021-01-26] MEDS ORDERED: PANTOPRAZOLE 40 MG VIAL ONE (14:34)
[2021-01-26] MEDS ORDERED: ONDANSETRON HCL/PF 4 MG/2 ML VIAL ONE (14:34)
[2021-01-26] MEDS ORDERED: MAG HYDROX/AL HYDROX/SIMETH 30 ML UDC ONE (14:34)
--- NOTE | 2021-01-26 14:50 | NUR ---
PATIENT WENT TO RESTROOM.
[2021-01-26] MEDS ORDERED: SUCR1ORA4 PO (15:08)
--- NOTE | 2021-01-26 15:25 | NUR ---
PATIENT PASSED THE PO CHALLENGE. ATE A SANDWICH AND DRANK MILK. PATIENT IN STABLE CONDITION. A/OX4, BREATHING EVEN AND UNLABORED, NO SOB NOTED. IV removed. Catheter intact and site benign. Pressure and 4x4 applied to site. No bleeding noted.Patient discharged to home in stable condition. Written and verbal after care instructions given. Patient verbalizes understanding of instruction.
[2021-01-26 15:26] VITALS: BP 157/82
== END 2021-01-26 15:27 | disposition home or self-care (01) ==
LOC: ER 13:35
DX: R10.13 Epigastric pain (principal); I10 Essential (primary) hypertension; E78.5 Hyperlipidemia, unspecified; E11.9 Type 2 diabetes mellitus without complications; F31.9 Bipolar disorder, unspecified; K21.9 Gastro-esophageal reflux disease without esophagitis; Z87.442 Personal history of urinary calculi; Z90.49 Acquired absence of other specified parts of digestive tract; Z90.710 Acquired absence of both cervix and uterus; Z98.890 Other specified postprocedural states; Z88.8 Allergy status to other drugs, medicaments and biological substances; Z88.9 Allergy status to unspecified drugs, medicaments and biological substances; Z79.4 Long term (current) use of insulin; Z79.82 Long term (current) use of aspirin; Z79.899 Other long term (current) drug therapy
CPT/HCPCS: 36415; 71045; 80048; 83880; 84484; 85025; 93005 ×2; 96374; 96375; 99285; C9113; J2405 ×2

== ENCOUNTER 2021-07-25 10:11 | Outpatient (CLI) | payer MEDICARE, OTHER ==
[~2021-07-25 10:11] MED LIST changes: +ARIP15TA18 PO; -ARIP15TA8 PO; -OMEP40CA13 PO; +OMEP40CA21 PO; +SUCR1ORA4 PO
== END 2021-07-25 23:59 | disposition home or self-care (01) ==
LOC: RAD 10:11
PROVIDERS: ATTEND Family Medicine
DX: R07.9 Chest pain, unspecified (principal)
CPT/HCPCS: 71046

== ENCOUNTER → 2021-09-22 | Outpatient (CLI) | payer MEDICARE, OTHER | END | disposition home or self-care (01) | LOC: CT 10:03 | PROVIDERS: ATTEND Family Medicine | DX: R91.1 Solitary pulmonary nodule (principal); M47.814 Spondylosis without myelopathy or radiculopathy, thoracic region; J18.9 Pneumonia, unspecified organism | CPT/HCPCS: 71250-TC ==

== ENCOUNTER 2021-11-08 11:54 | Emergency (ER) | payer MEDICARE, OTHER ==
[~2021-11-08] VITALS: Ht 154.9 cm; Wt 113.4 kg
[2021-11-08 12:01] VITALS: BP 176/82
== END 2021-11-08 15:35 | disposition home or self-care (01) ==
LOC: ER 11:56
DX: R40.0 Somnolence (principal); I10 Essential (primary) hypertension; E78.5 Hyperlipidemia, unspecified; E78.00 Pure hypercholesterolemia, unspecified; F31.9 Bipolar disorder, unspecified; Z98.890 Other specified postprocedural states; Z90.49 Acquired absence of other specified parts of digestive tract; Z79.899 Other long term (current) drug therapy; Z88.8 Allergy status to other drugs, medicaments and biological substances; Z79.82 Long term (current) use of aspirin

== ENCOUNTER 2021-11-21 10:42 | Outpatient (CLI) | payer MEDICARE, OTHER | END 2021-11-21 23:59 | disposition home or self-care (01) | LOC: CT 10:42 | PROVIDERS: ATTEND Family Medicine | DX: J32.3 Chronic sphenoidal sinusitis (principal); J34.2 Deviated nasal septum; J34.3 Hypertrophy of nasal turbinates; J34.1 Cyst and mucocele of nose and nasal sinus | CPT/HCPCS: 70486-TC ==

== ENCOUNTER 2021-11-28 09:36 | Outpatient (CLI) | payer MEDICARE, OTHER | END 2021-11-28 23:59 | disposition home or self-care (01) | LOC: RAD 09:36 | PROVIDERS: ATTEND Family Medicine | DX: M50.321 Other cervical disc degeneration at C4-C5 level (principal); M46.03 Spinal enthesopathy, cervicothoracic region; M41.84 Other forms of scoliosis, thoracic region | CPT/HCPCS: 72050-TC; 72074-TC ==

== ENCOUNTER 2022-05-08 11:29 | Outpatient (CLI) | payer MEDICARE, OTHER ==
[2022-05-08] MEDS ORDERED: HYDR-4209 PO (17:05)
[2022-05-08] MEDS ORDERED: CARI350T PO (17:05)
== END 2022-05-08 23:59 | disposition home or self-care (01) ==
LOC: MRI 11:29
PROVIDERS: ATTEND Family Medicine
DX: M50.30 Other cervical disc degeneration, unspecified cervical region (principal); M48.02 Spinal stenosis, cervical region; M25.78 Osteophyte, vertebrae; M47.812 Spondylosis without myelopathy or radiculopathy, cervical region; M50.21 Other cervical disc displacement, high cervical region
CPT/HCPCS: 72141-TC

== ENCOUNTER 2022-05-08 13:12 | Emergency (ER) | payer MEDICARE, OTHER ==
[~2022-05-08] VITALS: Ht 154.9 cm; Wt 110.7 kg
--- NOTE | 2022-05-08 15:15 | NUR ---
REceived pt 51 yrs female came from home was wating in wating room awake and alert c/o lower back pain no hx traurm and moving lower extramity pt used walker
--- NOTE | 2022-05-08 15:40 | NUR ---
sSEEN BY PROVIDER
--- NOTE | 2022-05-08 15:50 | NUR ---
DR. BANGURA AT [facility] with pt
--- NOTE | 2022-05-08 16:10 | NUR ---
to CT SACN IN LOWER BACK
--- NOTE | 2022-05-08 16:25 | NUR ---
BACK FROM CT SCAN
[2022-05-08] MEDS ORDERED: CARI350T PO (17:05)
[2022-05-08] MEDS ORDERED: HYDR-4209 PO (17:05)
--- NOTE | 2022-05-08 17:20 | NUR ---
D/C INSTRACTION GIVEN TO LT FULLY AND VERBLIZED UNDERSTOOD D/C HOME STABLE CONDITION NO PAIN
[2022-05-08 17:23] VITALS: BP 141/80
== END 2022-05-08 17:31 | disposition home or self-care (01) ==
LOC: ER 13:15
DX: M54.50 Low back pain, unspecified (principal); I10 Essential (primary) hypertension; E78.5 Hyperlipidemia, unspecified; E11.9 Type 2 diabetes mellitus without complications; E78.00 Pure hypercholesterolemia, unspecified; F31.9 Bipolar disorder, unspecified; Z98.890 Other specified postprocedural states; Z90.49 Acquired absence of other specified parts of digestive tract; Z88.8 Allergy status to other drugs, medicaments and biological substances; Z79.899 Other long term (current) drug therapy; Z79.82 Long term (current) use of aspirin; X50.0XXA Overexertion from strenuous movement or load, initial encounter; Y93.89 Activity, other specified; Y92.89 Other specified places as the place of occurrence of the external cause; Y99.8 Other external cause status
CPT/HCPCS: 72131-TC; 82962-TC

== ENCOUNTER 2022-05-17 12:24 | Inpatient (IN) | payer MEDICARE, OTHER ==
[~2022-05-17] VITALS: Ht 154.9 cm; Wt 106.1 kg
[~2022-05-17 12:24] MED LIST changes: +CARI350T PO; +HYDR-4209 PO
[2022-05-17 13:12] LABS: BASOPHILS # (AUTO) 0.1 K/uL (0.0-0.2); BASOPHILS % (AUTO) 0.7 % (0.0-2.0); HEMATOCRIT 40 % (33-45); LYMPHOCYTES # (AUTO) 1.5 K/uL (0.8-4.8); LYMPHOCYTES % (AUTO) 17.5 % (20.0-44.0); MEAN CORPUSCULAR HGB CONC 33 g/dl (31.0-36.0); MEAN CORPUSCULAR VOLUME 84 fL (82-100); MONOCYTES # (AUTO) 0.5 K/uL (0.1-1.30); MONOCYTES % (AUTO) 6.1 % (2.0-12.0); NEUTROPHILS # (AUTO) 6.2 K/uL (1.8-8.9); NEUTROPHILS % (AUTO) 72.7 % (43.0-81.0); PLATELET COUNT (AUTO) 262 K/uL (150-450); RED BLOOD CELL COUNT(AUTO) 4.72 MIL/uL (4.0-5.2); WHITE BLOOD COUNT (AUTO) 8.5 K/uL (4.3-11.0)
[2022-05-17 13:24] LABS: CALCIUM, SERUM 9.1 mg/dL (8.5-10.1); CARBON DIOXIDE 30 mmol/L (21-32); CHLORIDE 104 mmol/L (98-107); CREATININE 0.7 mg/dL (0.6-1.3); GLUCOSE 173 mg/dL (74-106); POTASSIUM 4.6 mmol/L (3.5-5.1); SODIUM SERUM 139 mmol/L (136-145); UREA NITROGEN, BLOOD 17 mg/dL (7-18)
[2022-05-17 13:29] LABS: ALANINE AMINOTRANSFERASE 29 U/L (12-78); ALBUMIN 4.1 g/dL (3.4-5.0); ALCOHOL, BLOOD < 3 mg/dL (0-0); ALKALINE PHOSPHATASE 102 U/L (46-116); ASPARTATE AMINOTRANSFERASE 13 U/L (15-37); BILIRUBIN,DIRECT 0.1 mg/dL (0.0-0.2); BILIRUBIN,TOTAL 0.5 mg/dL (0.2-1.0); TOTAL PROTEIN, SERUM 7.2 g/dL (6.4-8.2)
[2022-05-17 13:32] LABS: ACETAMINOPHEN 0 ug/ml (10-30)
[2022-05-17 13:33] LABS: BILIRUBIN,URINE NEGATIVE (NEGATIVE); COLOR,URINE YELLOW (YELLOW); LEUKOCYTE ESTERASE ,URINE NEGATIVE (NEGATIVE); NITRITE, URINE NEGATIVE (NEGATIVE); PROTEIN,URINE 30 mg/dl (NEGATIVE); UGLUCOSE NEGATIVE (NEGATIVE)
--- NOTE | 2022-05-17 13:42 | NUR ---
DR LARKIN AT BEDSIDE FOR EVAL
[2022-05-17 14:13] LABS: BACTERIA,URINE Few /HPF (None Seen); RBC,URINE 0-2 /HPF (0-2); SQUAMOUS EPITHELIAL CELL,UR Few /HPF (None Seen); WBC,URINE 0-2 /HPF (0-3)
--- NOTE | 2022-05-17 15:45 | NUR ---
GOT BED 216
[2022-05-17] MEDS ORDERED: ERGO500093 PO (16:02)
[2022-05-17] MEDS ORDERED: IBUP-1955 PO (16:02)
[2022-05-17] MEDS ORDERED: GABA-532 PO (16:02)
[2022-05-17] MEDS ORDERED: ALBU18HF2 IH (16:02)
[2022-05-17] MEDS ORDERED: LEVO25TA7 PO (16:02)
[2022-05-17] MEDS ORDERED: LURA40TA PO (16:02)
[2022-05-17] MEDS ORDERED: ATOR10TA PO (16:02)
[2022-05-17] MEDS ORDERED: ESTR0.5T PO (16:02)
[2022-05-17] MEDS ORDERED: LISI-768 PO (16:02)
[2022-05-17] MEDS ORDERED: AZEL137S7 (16:02)
[2022-05-17] MEDS ORDERED: NAPR-1009 PO (16:02)
[2022-05-17] MEDS ORDERED: CYAN-6 IM (16:02)
[2022-05-17] MEDS ORDERED: LAMO100T17 PO (16:02)
[2022-05-17] MEDS ORDERED: FLUT16SP (16:02)
[2022-05-17] MEDS ORDERED: INSU100I24 SQ (16:02)
[2022-05-17] MEDS ORDERED: DULA0.75 SQ (16:02)
[2022-05-17] MEDS ORDERED: IPRA42SP (16:02)
[2022-05-17] MEDS ORDERED: FLUT1DIS3 INH (16:02)
[2022-05-17] MEDS ORDERED: ACETAMINOPHEN 325 MG TABLET PO PRN (17:00)
[2022-05-17] MEDS ORDERED: TEMAZEPAM 7.5 MG CAPSULE PO PRN (17:00)
[2022-05-17] MEDS ORDERED: MAG HYDROX/AL HYDROX/SIMETH 30 ML UDC PO PRN (17:00)
[2022-05-17] MEDS ORDERED: MAGNESIUM HYDROXIDE 30 ML UDC PO PRN (17:00)
[2022-05-17] MEDS ORDERED: LORAZEPAM 0.5 MG TABLET PO PRN (17:00)
--- NOTE | 2022-05-17 17:20 | NUR ---
PATIENT ADMITTED FROM ER WITH WHEEL CHAIR, ADMIT DX IS DEPRESSION. SKIN IS INTACT, DENIES SI/HI. RESPIRATORY EVEN AND UNLABORED IN ROOM AIR. STABLE AMBULATORY WITH WALKER. PATIENT FINISHED DINNER AND GIVEN INSULIN 4 UNITS ACCORDING SLIDING SCALE, IN NO ACUTE DISTRESS. WILL CONTINUE TO MONITOR.
--- NOTE | 2022-05-17 17:25 | NUR ---
PT DENIES SI/HI AT THIS TIME. NO COMPLAINT OF VISUAL/AUDITORY HALLUCINATION.
--- NOTE | 2022-05-17 17:26 | NUR ---
pt report given to DEREK Vaz charge nurse.
--- NOTE | 2022-05-17 17:27 | NUR ---
PT TRANSFERRED TO 216 VIA WHEELCHAIR. BELONGINGS ENDORSED TO GPS STAFF . WARM HANDOFF GIVEN TO RN ASSIGNED.
--- NOTE | 2022-05-17 17:45 | NUR ---
RN-CO: DR REINA MADE AWARE OF THIS ADMISSION AND GAVE ADMITTING ORDERS. DR VILLEGAS WAS NOTIFIED AND ORDERED MILD SLIDING SCALE ACHS NOTED AND CARRIED OUT. PATIENT WAS ADVISED OF HER RIGHTS AND BOOKLET WAS GIVEN.
[2022-05-17] MEDS ORDERED: BLOOD SUGAR DIAGNOSTIC 1 EACH STRIP IN ONE (18:00)
[2022-05-17] MEDS: BLOOD SUGAR DIAGNOSTIC 1 EACH STRIP IN SCH ×2 (18:00→22:04)
[2022-05-17] MEDS ORDERED: DEXTROSE 50%-WATER 50 ML DISP.SYRIN IV PRN ×2 (18:00→20:30)
[2022-05-17] MEDS: INSULIN REGULAR, HUMAN 100 UNIT/ML 3 ML VIAL SQ PRN ×2 (18:45→21:18)
[2022-05-17] MEDS ORDERED: ALBUTEROL FS 2.5 MG/3 ML VIAL.NEB NEB PRN (20:30)
[2022-05-17] MEDS ORDERED: INSULIN REGULAR, HUMAN 100 UNIT/ML 3 ML VIAL SQ PRN (20:30)
[2022-05-17] MEDS ORDERED: FLUTICASONE PROPIONATE 16 GM BOTTLE NS PRN (20:30)
[2022-05-17] MEDS ORDERED: *INSULIN REGULAR(HUMULIN R)HUM 100 UNIT/ML VIAL SQ PRN (20:30)
[2022-05-17] MEDS: IBUPROFEN 600 MG TABLET PO PRN (21:07)
[2022-05-17] MEDS: BLOOD SUGAR DIAGNOSTIC 1 EACH STRIP VI SCH (22:03)
[2022-05-17] MEDS ORDERED: INSULIN GLARGINE, 100 UNIT/ML CARTRIDGE SQ ONE (22:13)
[2022-05-17] MEDS: INSULIN GLARGINE, 100 UNIT/ML CARTRIDGE SQ SCH (22:20)
[2022-05-18] MEDS: IBUPROFEN 600 MG TABLET PO PRN ×2 (04:06→12:24)
[2022-05-18 07:26] LABS: ALBUMIN 3.4 g/dL (3.4-5.0); BILIRUBIN,TOTAL 0.6 mg/dL (0.2-1.0); CALCIUM, SERUM 8.3 mg/dL (8.5-10.1); CREATININE 0.6 mg/dL (0.6-1.3); POTASSIUM 4.6 mmol/L (3.5-5.1); TOTAL PROTEIN, SERUM 6.5 g/dL (6.4-8.2)
[2022-05-18 07:29] LABS: CHOLESTEROL 163 mg/dL (<200); HDL CHOLESTEROL 34 mg/dL (40-60); LDL 99 mg/dL (0-99); TRIGLYCERIDES 171 mg/dL (30-150)
--- NOTE | 2022-05-18 07:30 | NUR ---
GPS RN OPENING NOTES RECEIVED PATIENT IN BED, AWAKE, A/O X3, ABLE TO VERBALIZED NEEDS. DENIES ANY PAIN AT THIS TIME.NO SIGNS OF SOB OR CARDIAC DISTRESS NOTED. PATIENT COOPERATIVE AND PLEASANT. SAFETY MEASURES MAINTAINED: BED IN LOWEST AND LOCKED POSITION, SIDE RAILS UP, WILL CONTINUE TO MONITOR FOR ANY CHANGES IN BEHAVIOR.
[2022-05-18] MEDS: LEVOTHYROXINE SODIUM 25 MCG TABLET PO SCH (07:38)
[2022-05-18] MEDS: BLOOD SUGAR DIAGNOSTIC 1 EACH STRIP IN SCH ×4 (07:44→22:23)
[2022-05-18] MEDS: BLOOD SUGAR DIAGNOSTIC 1 EACH STRIP VI SCH ×4 (07:45→22:23)
[2022-05-18 08:00] VITALS: BP 130/72
[2022-05-18] MEDS: NAPROXEN 500 MG TABLET PO SCH ×2 (08:15→16:32)
[2022-05-18] MEDS: INSULIN GLARGINE, 100 UNIT/ML CARTRIDGE SQ SCH ×2 (08:54→21:52)
--- NOTE | 2022-05-18 09:34 | NUR ---
TREVOR Clinical Note: Pt admitted at [facility] as a voluntary pt. Pt stated that she has been feeling depressed and anxious. Patient [facility] [address] [place] [address]; ([phone]). She reported that she lives with her son Cuba ([phone]). Pt would want to return back home and stated that her son Cuba ([phone]) will citrus picker pt at discharge.
--- NOTE | 2022-05-18 09:34 | NUR ---
TREVOR Initial Discharge Plan: Patient currently resides at home [facility] at [address] [place] [address], [place] [address]; ([phone]). She reported that she lives with her son Cuba ([phone]). Pt would want to return back home and stated that her son Cuba ([phone]) will poultry picking machine tender pt at discharge. TREVOR will work with the MD, family, and treatment team to help coordinate appropriate discharge.
--- NOTE | 2022-05-18 09:35 | NUR ---
TREVOR Family Contact: SW attempted to contact pt's son Cuba ([phone]) to discuss treatment and discharge plan. He stated pt would return back home upon dc and he will pick her up when pt is ready for dc.
--- NOTE | 2022-05-18 10:51 | NUR ---
Individual Therapy: SW met with patient to conduct therapy. Pt stated that she has been feeling very anxious and depressed. Pt stated that at home she has been depressed. She stated hopefully the hospital is able to help with her medications.
--- NOTE | 2022-05-18 13:09 | NUR ---
TREVOR Coordination of Care: Pt will follow up with Psychiatrist, Dr. Bentley located at [address] [place] [address]; ([phone]) on June 02 at 9AM, scheduled by nurse Ladd.
[2022-05-18] MEDS: INSULIN REGULAR, HUMAN 100 UNIT/ML 3 ML VIAL SQ PRN ×2 (14:43→21:53)
[2022-05-18 16:00] VITALS: BP 142/77
--- NOTE | 2022-05-18 18:49 | NUR ---
GPS RN CLOSING NOTES: PATIENT IN BED ASLEEP IN BED, A/OX3. PATIENT REMAINED CALM IN THE SHIFT, PATIENT AMBULATORY.NO SOB OR CARDIAC DISTRESS NOTED, ON ROOM AIR AND TOLERATING WELL. SAFETY MEASURES MAINTAINED: BED LOCKED AND IN LOWEST POSITION, SIDE RAILS UP X 2. CALL LIGHT IN EASY REACH FOR ASSISTANCE. ENDORSED TO CONDUCTOR PULLMAN FOR CARO.
[2022-05-18 20:00] VITALS: BP 130/67
[2022-05-18] MEDS: ATORVASTATIN 10 MG TABLET PO SCH (21:26)
[2022-05-18] MEDS ORDERED: VENLAFAXINE XR 75 MG CAP.SR.24H PO SCH (21:30)
[2022-05-18] MEDS: TRAZODONE 50 MG TABLET PO SCH (21:50)
[2022-05-19] MEDS: IBUPROFEN 600 MG TABLET PO PRN (01:02)
[2022-05-19] MEDS: BLOOD SUGAR DIAGNOSTIC 1 EACH STRIP IN SCH ×4 (07:50→21:12)
[2022-05-19 08:00] VITALS: BP 133/81
[2022-05-19] MEDS: CARBAMAZEPINE 200 MG TABLET PO SCH ×3 (08:16→16:31)
[2022-05-19] MEDS: NAPROXEN 500 MG TABLET PO SCH ×2 (08:16→16:31)
[2022-05-19] MEDS: LEVOTHYROXINE SODIUM 25 MCG TABLET PO SCH (08:16)
[2022-05-19] MEDS: VENLAFAXINE XR 75 MG CAP.SR.24H PO SCH (08:16)
[2022-05-19] MEDS: INSULIN GLARGINE, 100 UNIT/ML CARTRIDGE SQ SCH ×2 (08:19→21:14)
[2022-05-19] MEDS: INSULIN REGULAR, HUMAN 100 UNIT/ML 3 ML VIAL SQ PRN ×4 (08:21→21:19)
--- NOTE | 2022-05-19 10:49 | NUR ---
TREVOR Note: Pt was standing in the hallway and yelling. She appeared anxious at this time and was focused on other patient's behaviors. She kept stating "just because I am in a mental unit does not mean I am crazy". TREVOR attempted to calm pt down.
[2022-05-19 16:00] VITALS: BP 132/75
[2022-05-19] MEDS: ATORVASTATIN 10 MG TABLET PO SCH (17:15)
[2022-05-19 20:00] VITALS: BP 152/75
--- NOTE | 2022-05-19 20:18 | NUR ---
Pt alert and awake oriented x 3- ambulatory, walking in hallway- verbalized she needs to do exercise coz she's diabetic and that she has just been sitting all day- so she needs to walk around now and exercise, after few mins pt requested nurse for warm pack- c/o lower lumbar pain- and stated usually warm/ or cold pack helps- provided pt with warm pack and assisted her in her bed. Will cont to monitor and anticipate needs.
[2022-05-19] MEDS: TRAZODONE 50 MG TABLET PO SCH (21:08)
--- NOTE | 2022-05-19 23:54 | NUR ---
Pt comfortably sleeping at this time, breathing even and unlabored. Cont to monitor pt's safety and anticipate needs.
[2022-05-20] MEDS: IBUPROFEN 600 MG TABLET PO PRN ×3 (04:34→21:56)
--- NOTE | 2022-05-20 04:43 | NUR ---
Pt woke up and requested PRN Ibuprofen medication for her lower back pain- PRN given as requested and as ordered for pain 01/24 per pt.
--- NOTE | 2022-05-20 07:00 | NUR ---
GPS RN OPENING NOTES PATIENT SITTING IN CHAIR, A/O X 3, ABLE TO MAKE NEEDS KNOWN, ANXIOUS. NO S/S DISCOMFORT OR RESPIRATORY DISTRESS. PATIENT IS AMBULATORY. WILL CONTINUE TO MONITOR Q15M FOR SAFETY AND COMFORT.
[2022-05-20] MEDS: LEVOTHYROXINE SODIUM 25 MCG TABLET PO SCH (07:29)
[2022-05-20] MEDS: BLOOD SUGAR DIAGNOSTIC 1 EACH STRIP IN SCH ×4 (07:39→21:26)
[2022-05-20] MEDS: INSULIN REGULAR, HUMAN 100 UNIT/ML 3 ML VIAL SQ PRN ×4 (07:40→21:34)
[2022-05-20 08:00] VITALS: BP 149/86
[2022-05-20] MEDS: VENLAFAXINE XR 75 MG CAP.SR.24H PO SCH (08:13)
[2022-05-20] MEDS: NAPROXEN 500 MG TABLET PO SCH ×2 (08:13→17:04)
[2022-05-20] MEDS: CARBAMAZEPINE 200 MG TABLET PO SCH ×3 (08:13→17:04)
[2022-05-20] MEDS: INSULIN GLARGINE, 100 UNIT/ML CARTRIDGE SQ SCH ×2 (08:14→21:28)
[2022-05-20 16:00] VITALS: BP 150/74
[2022-05-20] MEDS: ATORVASTATIN 10 MG TABLET PO SCH (17:04)
[2022-05-20 20:27] VITALS: BP 153/83
--- NOTE | 2022-05-20 20:42 | NUR ---
RN NOTES: PATIENT WATCHING TV IN ACTIVITY ROOM. NO S/SX OF ACUTE DISTRESS NOTED,DEPRESSED, EASILY AGITATED, DISORGANIZED,HYPERVERBAL PARANOID,NEEDY DEMANDING NEEDS FREQUENT REDIRECTION. ENCOURAGED TO VERBALIZE ANY FEELING OR CONCERN,DENIES SI/HI AT THIS TIME. SAFETY MEASURES IN PLACE. WILL CONTINUE TO MONITOR Q15MIN ROUNDS FOR SAFETY AND BEHAVIOR.
[2022-05-20] MEDS: TRAZODONE 50 MG TABLET PO SCH (21:31)
--- NOTE | 2022-05-20 21:35 | NUR ---
RN NOTES: PT. BS 193 MGDL, PT.REFUSED COVERAGE TO TAKEN , PER PT. MY BS IS NOT TO HIGH , BUT I WILL TAKE LANTUS AND LANTUS GIVEN PER MD ORDERS.
--- NOTE | 2022-05-20 21:58 | NUR ---
RN NOTES: PAIN PT. C/O BACK PAIN 03/26 PRN MOTRIN 600 MG PO GIVEN PER PT. REQUEST, WILL CONTINUE TO MONITOR.
[2022-05-21 06:52] LABS: BASOPHILS % (AUTO) 0.6 % (0.0-2.0); EOSINOPHILS % (AUTO) 3.3 % (0.0-6.0); HEMATOCRIT 37 % (33-45); HEMOGLOBIN 12.4 g/dL (11.5-14.8); LYMPHOCYTES # (AUTO) 1.9 K/uL (0.8-4.8); LYMPHOCYTES % (AUTO) 24.2 % (20.0-44.0); MEAN CORPUSCULAR HGB CONC 33 g/dl (31.0-36.0); MEAN CORPUSCULAR VOLUME 84 fL (82-100); MONOCYTES # (AUTO) 0.4 K/uL (0.1-1.30); MONOCYTES % (AUTO) 5.6 % (2.0-12.0); NEUTROPHILS # (AUTO) 5.3 K/uL (1.8-8.9); NEUTROPHILS % (AUTO) 66.3 % (43.0-81.0); PLATELET COUNT (AUTO) 249 K/uL (150-450); RED BLOOD CELL COUNT(AUTO) 4.42 MIL/uL (4.0-5.2)
[2022-05-21 07:08] LABS: ALBUMIN 3.6 g/dL (3.4-5.0); BILIRUBIN,TOTAL 0.5 mg/dL (0.2-1.0); CALCIUM, SERUM 8.7 mg/dL (8.5-10.1); CREATININE 0.7 mg/dL (0.6-1.3); POTASSIUM 4.3 mmol/L (3.5-5.1); TOTAL PROTEIN, SERUM 6.7 g/dL (6.4-8.2)
[2022-05-21] MEDS: LEVOTHYROXINE SODIUM 25 MCG TABLET PO SCH (07:38)
[2022-05-21] MEDS: BLOOD SUGAR DIAGNOSTIC 1 EACH STRIP IN SCH ×4 (07:46→21:16)
[2022-05-21 08:00] VITALS: BP 130/77
[2022-05-21] MEDS: CARBAMAZEPINE 200 MG TABLET PO SCH ×2 (08:20→16:49)
[2022-05-21] MEDS: NAPROXEN 500 MG TABLET PO SCH ×2 (08:20→16:48)
[2022-05-21] MEDS: VENLAFAXINE XR 75 MG CAP.SR.24H PO SCH (08:20)
[2022-05-21] MEDS: INSULIN GLARGINE, 100 UNIT/ML CARTRIDGE SQ SCH ×2 (08:51→21:20)
[2022-05-21] MEDS: INSULIN REGULAR, HUMAN 100 UNIT/ML 3 ML VIAL SQ PRN ×3 (12:07→22:00)
[2022-05-21 16:00] VITALS: BP 159/76
[2022-05-21] MEDS: ATORVASTATIN 10 MG TABLET PO SCH (17:25)
[2022-05-21 20:22] VITALS: BP 140/67
[2022-05-21] MEDS: TRAZODONE 50 MG TABLET PO SCH (21:20)
--- NOTE | 2022-05-22 00:43 | NUR ---
Patient refused weekly skin assessment.
[2022-05-22] MEDS: IBUPROFEN 600 MG TABLET PO PRN ×2 (04:13→22:42)
[2022-05-22] MEDS: BLOOD SUGAR DIAGNOSTIC 1 EACH STRIP IN SCH ×4 (07:35→21:36)
[2022-05-22] MEDS: LEVOTHYROXINE SODIUM 25 MCG TABLET PO SCH (07:50)
[2022-05-22] MEDS: INSULIN REGULAR, HUMAN 100 UNIT/ML 3 ML VIAL SQ PRN ×4 (07:54→21:55)
[2022-05-22 08:00] VITALS: BP 149/82
[2022-05-22] MEDS: INSULIN GLARGINE, 100 UNIT/ML CARTRIDGE SQ SCH ×2 (08:42→21:35)
[2022-05-22] MEDS: CARBAMAZEPINE 200 MG TABLET PO SCH ×2 (08:42→16:34)
[2022-05-22] MEDS: VENLAFAXINE XR 75 MG CAP.SR.24H PO SCH ×2 (08:42→08:48)
[2022-05-22] MEDS: NAPROXEN 500 MG TABLET PO SCH ×2 (08:42→16:34)
--- NOTE | 2022-05-22 09:00 | NUR ---
RN NOTE-PATIENT AOX4 NO S/SX OF ACUTE DISTRESS NOTED,DEPRESSED PARANOID,NEEDYDEMANDING NEEDS FREQUENT REDIRECTION. ENCOURAGED TO VERBALIZE ANY FEELING OR CONCERN,DENIES SI/HI AT THIS TIME. SAFETY MEASURES IN PLACE. WILL CONTINUE TO MONITOR Q15MIN ROUNDS FOR SAFETY AND BEHAVIOR.
[2022-05-22 16:00] VITALS: BP 135/63
[2022-05-22] MEDS: ATORVASTATIN 10 MG TABLET PO SCH (17:53)
[2022-05-22 20:39] VITALS: BP 136/78
[2022-05-22 20:52] VITALS: BP 136/78
--- NOTE | 2022-05-22 21:56 | NUR ---
RN NOTE PATIENT REFUSED SSI TONIGHT DESPITE OF RISKS AND BENEFITS EXPLANATIONS, BS IS 273 MG/DL, PATIENT ALSO DIDN'T WANT SNACK AT THIS TIME. PATIENT AGREED TO TAKE LANTUS SCHEDULED. WILL CONTINUE TO MONITOR.
[2022-05-22] MEDS: TRAZODONE 50 MG TABLET PO SCH (22:37)
--- NOTE | 2022-05-22 22:43 | NUR ---
RN NOTE: PAIN PATIENT C/O LOWER BACK PAIN 5/10 AND WANTED TO TAKE PAIN MEDICATION. PRN MOTRIN 600 MG PO ADMINISTERED. WILL CONTINUE TO MONITOR.
[2022-05-23 08:00] VITALS: BP 156/80
[2022-05-23] MEDS: CARBAMAZEPINE 200 MG TABLET PO SCH (09:44)
[2022-05-23] MEDS: BLOOD SUGAR DIAGNOSTIC 1 EACH STRIP IN SCH ×2 (09:45→11:33)
[2022-05-23] MEDS: NAPROXEN 500 MG TABLET PO SCH (09:45)
[2022-05-23] MEDS: LEVOTHYROXINE SODIUM 25 MCG TABLET PO SCH (09:45)
[2022-05-23] MEDS: INSULIN GLARGINE, 100 UNIT/ML CARTRIDGE SQ SCH (09:53)
[2022-05-23] MEDS: INSULIN REGULAR, HUMAN 100 UNIT/ML 3 ML VIAL SQ PRN ×2 (09:55→11:36)
--- NOTE | 2022-05-23 12:11 | NUR ---
RN NOTES PATIENT GOING HOME AMA . SIGN AMA FORM, PSYCHIATRIST NOTIFIED. EDUCATION PATIENT ABOUT RISKS, AND CONSEQUENCES LIVING THE HOSPITAL. PATIENT ON VOLUNTARY STATUS AND NOTED ABLE TO MAKE DECISION TO GO HOME. PATIENTS SON WILL PICK PATIENT UP. BELONGING WITH THE PATIENT SIGNED. SONS NAME IS MENDEZ GANDHI, PHONE # [phone].
--- NOTE | 2022-05-23 13:30 | NUR ---
RN NOTES HOSPITALIST AWARE OF AMA PATIENT LEAVING, ALSO SEEN PATIENT WELL.
--- NOTE | 2022-05-23 13:59 | NUR ---
RN NOTES PATIENT DISCHARGE AT THIS TIME SIGN AMA. ESCORTED PATIENT TO THE LOBBY FOR SAFETY. PATIENT HAS BELONGING WITH HER, AND SIGNED. PATIENT LEASE ATTENDANT VIA SON.
--- NOTE | 2022-05-23 14:06 | NUR ---
Discharge Note: Patient will discharge back home located at [[id number] [facility] [place] [address]; ([phone])]. Patients son [place] ([phone]) will picking belt operator pt at 2 pm. Pt appeared alert and oriented x4. Pt. happy to be going back home. Pt. denies suicidal or homicidal ideation. Pt denies visual/auditory hallucinations. Pt. will follow up with Radiographic Technologist, Dr. Harinder Raphael located at [address] [address]; ([phone]). Pt will follow up with Psychiatrist, Dr. Bentley located at [address] [place] [address]; ([phone]) on June 02 at 9AM.
[2022-06-16] MEDS ORDERED: CYANOCOBALAMIN 1,000 MCG/ML VIAL IM SCH (09:00)
== END 2022-05-23 13:59 | disposition left against medical advice (07) | DRG 885 ==
LOC: ER 12:27 → GPS 16:05
PROVIDERS: ADMIT Psychiatry & Neurology Psychiatry; ATTEND Registered Nurse
DX: F31.30 Bipolar disorder, current episode depressed, mild or moderate severity, unspecified (principal); E11.65 Type 2 diabetes mellitus with hyperglycemia; R45.851 Suicidal ideations; I10 Essential (primary) hypertension; E78.5 Hyperlipidemia, unspecified; E88.81 Metabolic syndrome and other insulin resistance; G89.29 Other chronic pain; Z79.4 Long term (current) use of insulin; M47.896 Other spondylosis, lumbar region; M54.50 Low back pain, unspecified; F41.0 Panic disorder [episodic paroxysmal anxiety]; Z20.822 Contact with and (suspected) exposure to COVID-19
CPT/HCPCS: 36415; 80048-TC; 80053-TC; 80061-TC; 80076-TC; 80156-TC; 81001; 82962-TC; 85025-TC; 87081-TC; 97116-TC; 97530-TC; C9803; G0480; J1815

== ENCOUNTER 2022-05-25 13:02 | Outpatient (CLI) | payer MEDICARE, OTHER ==
[~2022-05-25 13:02] MED LIST changes: +ALBU18HF2 IH; -ARIP15TA18 PO; -ASPI-1420 PO; +ATOR10TA PO; -CARI350T PO; +CYAN-6 IM; -DICY10CA59 PO; +DULA0.75 SQ; +ERGO500093 PO; +ESTR0.5T PO; +FLUT16SP; -GEMF600T90 PO; -HYDR-4209 PO; +IBUP-1955 PO; -INSU100I19 SQ; +INSU100I24 SQ; +LEVO25TA7 PO; -LOSA25TA27 PO; +NAPR-1009 PO; -OMEP40CA21 PO; -PANT40TA2 PO; -SERT100T PO; -SITA1TAB6 PO; -SUCR1ORA4 PO; -SUCR1TAB31 PO; -SULF1TAB48 PO; -TRAZ-257 PO
== END 2022-05-25 23:59 | disposition home or self-care (01) ==
LOC: MRI 13:02
PROVIDERS: ATTEND Family Medicine
DX: M47.817 Spondylosis without myelopathy or radiculopathy, lumbosacral region (principal); M51.27 Other intervertebral disc displacement, lumbosacral region; M48.07 Spinal stenosis, lumbosacral region; M48.8X7 Other specified spondylopathies, lumbosacral region; M89.8X8 Other specified disorders of bone, other site
CPT/HCPCS: 72148-TC

== ENCOUNTER 2024-05-22 10:26 | Outpatient (CLI) | payer MEDICARE, OTHER ==
[2024-05-22] MEDS ORDERED: GADOTERATE MEGLUMINE 10 MMOL/20 ML VIAL IV ONE (12:55)
== END 2024-05-22 23:59 | disposition home or self-care (01) ==
LOC: MRI 10:26
PROVIDERS: ATTEND Family Medicine
DX: K76.0 Fatty (change of) liver, not elsewhere classified (principal); Z90.49 Acquired absence of other specified parts of digestive tract
CPT/HCPCS: 74183; A9575